=== PATIENT | female | born 1995 | race Caucasian/White ===

== ENCOUNTER → 2016-07-08 | Outpatient (REF) | payer OTHER, SELFPAY | LOC: M LAB REF 16:47 | PROVIDERS: ATTEND Physician Assistant | DX: J02.9 Acute pharyngitis, unspecified (principal) ==

== ENCOUNTER → 2016-10-28 | Outpatient (REF) | payer OTHER | LOC: M LAB REF 09:38 | PROVIDERS: ATTEND Physician Assistant | DX: M54.5 Low back pain (principal) ==

== ENCOUNTER → 2016-11-15 | Outpatient (REF) | payer OTHER | LOC: M LAB REF 13:12 | PROVIDERS: ATTEND Physician Assistant | DX: R30.0 Dysuria (principal) ==

== ENCOUNTER 2017-03-16 09:24 | Inpatient (IN) | payer OTHER ==
[~2017-03-16] VITALS: Ht 154.9 cm; Wt 96.9 kg
[2017-03-16 10:02] VITALS: BP 116/57
[2017-03-16] MEDS ORDERED: FLINCHW9 PO (10:06)
[2017-03-16] MEDS ORDERED: BETAMETHASONE SOLUSPAN 6MG/ML INJ 5ML (J0702) IM ONE (10:45)
[2017-03-16 10:57] VITALS: BP 126/67
--- NOTE | 2017-03-16 13:31 | IPNPDOC ---
Text Note Date of Service The patient was seen on 03/16/17. NOTE Subjective: Patient is a 22 year-old female who is a at 34.1 weeks gestation with an MONICA of 04/26/17. She initiated care with Lamont Gaitan CNM in her 1st trimester and transferred to [facility] in [place]. She presents to L&D for her 2nd dose of betamethasone. She was suppose to go to [place] today for her 2nd dose today but did not want to make the drive due to the weather. She was seen in [place] with contractions and given Magnesium and terbutaline. Her cervix was 2/50/-[address] Castañeda, who discharged her from the hospital yesterday. She arrived for her injection and reports having contractions that are occasionally uncomfortable. She denies vaginal bleeding or leaking of fluid. Reports active movement. Reports contractions are not as bad as they were when she went to the hospital 2 days ago. Obstetrical history: 2010 induced AB, March 2016-6 weeks SAB; Current : Positive AFP tetra-seen at the [facility] with no abnormalities noted on ultrasound-declined amniocentesis. Medical History: anxiety, depression, obesity Surgical History: none Family history: heart disease, bone cancer, lung cancer Social history: single, with FOB-who is supportive, works at [employer]. Denies being a smoker or a history of smoking, alcohol use or abuse, or drug abuse or use. Denies physical, sexual, or emotional abuse. Objective: VS: see below. FHR 115, moderate variability, positive accelerations , no decelerations. Contractions every 2.5 to 7 minutes. SVE: 3/100/0, no show. Abdomen: gravid, palpates soft. Respirations: regular, no use of accessory muscles. Bilateral lower extremities: no edema present. GBS obtained. Assessment: IUP at 34.1 weeks gestation, Category I FHR tracing, rule out labor Plan: Continue to monitor patient. Will assess for cervical change tonight. Patient to receive her 2nd dose of beta today at 1100. GBS obtained. Regular diet. OOB ad breana. Reviewed plan of care with patient and significant other. Reviewed potential to stay and be admitted if she has more cervical change. Reviewed with patient that baby would have to be admitted to NICU if she is in labor. All questions and concerns addressed. VS,Fishbone, I+O VS, Fishbone, I+O Vital Signs Date Time Temp Pulse Resp B/P (MAP) Pulse Ox O2 Delivery O2 Flow Rate FiO2 03/16/17 10:57 94 16 126/67 (86) 03/16/17 10:02 97.7 EH COOPER CNM Mar 16, 2017 13:31
[2017-03-16 14:30] VITALS: BP 116/57
[2017-03-16] MEDS ORDERED: LACTATED RINGER'S 1000 ML IV STA (15:30)
[2017-03-16 16:44] LABS: MEAN CORPUSCULAR HEMOGLOBIN 28.9 pg (27.0-33.0); MEAN CORPUSCULAR HGB CONC 33.1 g/dl (32.0-36.5); MEAN CORPUSCULAR VOLUME 87.2 fl (80.0-96.0); PLATELET COUNT, AUTOMATED 141 10^3/uL (150-450); RED CELL DISTRIBUTION WIDTH 13.4 % (11.5-14.5); WHITE BLOOD COUNT 4.9 10^3/uL (4.0-10.0)
[2017-03-16 16:55] VITALS: BP 102/52
--- NOTE | 2017-03-16 17:15 | IPNPDOC ---
Text Note Date of Service The patient was seen on 03/16/17. NOTE Subjective: Patient reports she has felt 1 contraction in the last 20 minutes. States the intensity and frequency has decreased. She is on her side watching football with her family. Objective: VS: stable. FHR: 120, moderate variability, positive accelerations, no decelerations. Contractions: occasional. 1 hour ago a 4 minute deceleration was noted that decreased into the 100's with great recovery. Assessment: IUP at 34.1 weeks gestation, labor Plan: After reviewing case with Dr. Harper the decision was made to start an IV , give IV fluids, start prophylactic GBS antibiotics, and obtain a CBC. Will continue to monitor. Reviewed plan with patient and . EH COOPER CNM Mar 16, 2017 17:15
--- NOTE | 2017-03-16 23:55 | IPNPDOC ---
Text Note Date of Service The patient was seen on 03/16/17. NOTE Subjective: Patient reports she had some leaking of fluid when she got up to go to the bathroom. Denies leaking fluid while in bed. Reports contractions are very infrequent. Denies any increase in pain or pressure. Objective: FHR: 120, moderate variability, positive accelerations, no decelerations. Contractions: occasionally. Sterile speculum exam: scant amount of clear fluid in the vagina, positive nitrazine, negative fern. SVE: 3/100/-1, no show. No cervical change. Assessment: IUP at 34.1 weeks gestation, labor, Category I FHR tracing Plan: Will continue to monitor for SROM. Reviewed with patient that we will continue to monitor and continue with prophylactic GBS antibiotics. Patient encouraged to let nurse know if she has any increased pressure, leaking of fluid , or increased contractions. VS,Fishbone, I+O VS, Fishbone, I+O Laboratory Tests 03/16/17 16:33 Red Blood Count 4.78, Mean Corpuscular Volume 87.2, Mean Corpuscular Hemoglobin 28.9, Mean Corpuscular Hemoglobin Concent 33.1, Red Cell Distribution Width 13.4 EH COOPER CNM Mar 16, 2017 23:55
[2017-03-17] VITALS (27 sets, daily range): BP systolic 93–150; BP diastolic 52–82
[2017-03-17] MEDS: CEFAZOLIN SOD 1 GM in APPROPRIATE DILUENT 1 EA IV SCH ×3 (01:13→16:54)
[2017-03-17] MEDS: LR 1,000 ML IV SCH ×2 (01:14→16:03)
[2017-03-17] MEDS ORDERED: OXYTOCIN DRIP 30 UNITS in APPROPRIATE DILUENT 1 EA IV SCH ×3 (07:30→19:16)
--- NOTE | 2017-03-17 07:47 | IPNPDOC ---
Text Note Date of Service The patient was seen on 03/17/17. NOTE Subjective: Patient reports she hasn't had any leaking of fluid but feels moist. Reports occasional contractions but no increase in intensity or frequency. Denies increase in vaginal pressure. Objective: Repeat sterile speculum exam performed. +nitrazine, scant pooling of fluid noted, + ferning. SVE: 3-4/100/-1. FHR: Category I tracing. Contractions: occasionally. Assessment: IUP at 34.2 weeks gestation, labor, PPROM, unknown GBS status, Category I FHR tracing, beta complete. Plan: Reviewed findings with patient and significant other. Dr. Harper consulted on findings. Patient admitted to L&D. Reviewed potential complications associated with delivery of a and admission into NICU. Neonatology to be consulted and present for delivery. Plan reviewed with patient, myself, significant other, and Dr. Harper. If patient does not spontaneously go into labor we will augment her labor with Pitocin. Patient and significant other agree with plan of care. VS,Realbone, I+O VS, Fishbone, I+O Laboratory Tests 03/16/17 16:33 Red Blood Count 4.78, Mean Corpuscular Volume 87.2, Mean Corpuscular Hemoglobin 28.9, Mean Corpuscular Hemoglobin Concent 33.1, Red Cell Distribution Width 13.4 Vital Signs Date Time Temp Pulse Resp B/P (MAP) Pulse Ox O2 Delivery O2 Flow Rate FiO2 03/17/17 01:13 81 105/52 (69) 03/16/17 16:55 97.6 16 EH COOPER CNM Mar 17, 2017 07:47
[2017-03-17 08:56] LABS: MEAN CORPUSCULAR HEMOGLOBIN 28.7 pg (27.0-33.0); MEAN CORPUSCULAR HGB CONC 32.8 g/dl (32.0-36.5); MEAN CORPUSCULAR VOLUME 87.3 fl (80.0-96.0); PLATELET COUNT, AUTOMATED 193 10^3/uL (150-450); RED CELL DISTRIBUTION WIDTH 13.6 % (11.5-14.5); WHITE BLOOD COUNT 7.6 10^3/uL (4.0-10.0)
[2017-03-17 12:04] LABS: HBSAG L&D NEGATIVE (NEGATIVE)
[2017-03-17] MEDS ORDERED: FENTANYL 2MCG/ML ROPIVACAINE 0.2% IN 0.9% NACL 200ML IVBAG As Ordered ONE (13:02)
[2017-03-17] MEDS ORDERED: OXYTOCIN 30 UNITS IN 0.9% NaCl 500ML IV BAG (J2590) As Ordered ONE (14:02)
[2017-03-17] MEDS ORDERED: ONDANSETRON 4MG/2ML VIAL (J2405) IV PRN (14:30)
[2017-03-17] MEDS ORDERED: EPIDURAL/PCA KEYS XX PRN (14:30)
[2017-03-17] MEDS ORDERED: REFRIGERATOR IV KEYS XX PRN (14:30)
[2017-03-17] MEDS ORDERED: EPIDURAL COMMENT XX SCH (14:30)
[2017-03-17] MEDS ORDERED: diphenhydrAMINE INJ 50MG/ML VIAL (J1200) IV PRN (14:30)
[2017-03-17] MEDS ORDERED: ePHEDrine SULFATE 25 MG/5 ML(5MG/ML) SYRINGE IV PRN (14:30)
[2017-03-17] MEDS ORDERED: FENTANYL/ROPIVACAINE/NACL BAG 200 ML EPIDURAL SCH (14:30)
[2017-03-17] MEDS ORDERED: NALOXONE INJ 0.4 MG/1 ML VIAL (J2310) IV PRN (14:30)
[2017-03-17] MEDS ORDERED: LACTATED RINGER'S 1000 ML IV PRN (14:30)
[2017-03-17 19:09] LABS: CORD GAS ABE V 0.5; CORD GAS HCO3 V 25.2 MEQ/L; CORD GAS O2 SAT V 67.9 %; CORD GAS PH V 7.407 UNITS; CORD GAS SBC V 24.1 MEQ/L; CORD GAS TCO2 V 26.5 MEQ/L
[2017-03-17 19:10] LABS: CORD GAS ABE A -1.1; CORD GAS HCO3 A 27.5 MEQ/L; CORD GAS O2 SAT A 57.1 %; CORD GAS PH A 7.272 UNITS; CORD GAS PO2 A 24.1 mmHg; CORD GAS SBC A 22.4 MEQ/L; CORD GAS TCO2 A 29.4 MEQ/L
[2017-03-17] MEDS ORDERED: IBUPROFEN 800 MG TAB PO PRN (19:30)
[2017-03-17] MEDS ORDERED: DOCUSATE SODIUM 100 MG CAP PO PRN (19:30)
[2017-03-17] MEDS ORDERED: RHOGAM 300 MCG (1500 IU) INJ (J2790) IM SCH (19:30)
[2017-03-17] MEDS ORDERED: METHYLERGONOVINE MALEATE 0.2 MG TAB PO PRN (19:30)
[2017-03-17] MEDS ORDERED: DIBUCAINE 1% OINTMENT 30GM TOP PRN (19:30)
[2017-03-17] MEDS ORDERED: MEASLES,MUMPS,RUBELLA VACCINE INJ (MMR-II) (90707) SC SCH (19:30)
[2017-03-17] MEDS ORDERED: ACETAMINOPHEN 500 MG TAB PO PRN (19:30)
--- NOTE | 2017-03-17 19:40 | DN ---
DATE OF DELIVERY: 03/17/2017 Vidhi is a 22-year-old female, 3, para 0 who presented to labor and delivery at 34-2/7 weeks gestation with a history of labor. She was given one dose of steroid to complete her dose of steroids that was started at [place]. She progressed in labor with a spontaneous rupture of membranes and in active labor. She then became fully dilated and delivered a live female infant in right occiput anterior position over an intact perineum. 9 and 9, weight 4 pounds 14 ounces. Placenta delivered spontaneously intact. Three-vessel cord. Perineum, vagina, cervix inspected. No laceration noted. Estimated blood loss 300 mL. Both mother and baby in stable condition. Baby cared for by out roustabout hand, Dr. García.
[2017-03-18 06:00] VITALS: BP 114/69
[2017-03-18] MEDS ORDERED: ADACEL/BOOSTRIX VACCINE (DIPHTH/PERTUSS/ACELL/TETANUS)0.5ML SYR (90715) IM ONE (09:00)
[2017-03-18] MEDS: PRENATAL VITAMINS CHEWABLE TABLET PO SCH (09:28)
[2017-03-18] MEDS: valACYclovir HCL 500 MG TAB PO SCH ×2 (12:56→20:06)
[2017-03-18 18:11] VITALS: BP 116/61
[2017-03-19] MEDS ORDERED: VALT1TAB PO (09:06)
[2017-03-19] MEDS: valACYclovir HCL 500 MG TAB PO SCH (09:53)
[2017-03-19] MEDS: PRENATAL VITAMINS CHEWABLE TABLET PO SCH (09:53)
[2017-03-19] MEDS ORDERED: ADVI200C5 PO (12:36)
[2017-03-19] MEDS ORDERED: ACET50TA PO (12:38)
== END 2017-03-19 12:45 | disposition home or self-care (01) | DRG 560 ==
LOC: M LDO 09:24 → M LDI 03-17 07:51 → M OBS 03-17 20:45
PROVIDERS: ADMIT Obstetrics & Gynecology; ATTEND Obstetrics & Gynecology
PROC: 10E0XZZ Delivery of Products of Conception, External Approach (ICD-10-PCS; principal; 2017-03-17)
DX: O60.14X0 Preterm labor third trimester with preterm delivery third trimester, not applicable or unspecified (principal); Z3A.34 34 weeks gestation of pregnancy; O99.214 Obesity complicating childbirth; E66.9 Obesity, unspecified; Z37.0 Single live birth; Z68.41 Body mass index [BMI] 40.0-44.9, adult

== ENCOUNTER → 2017-05-01 | Outpatient (REF) | payer OTHER ==
[2017-05-01 18:07] LABS: CHLAMYDIA DNA AMPLIFICATION NEGATIVE (NEGATIVE); GC DNA AMPLIFICATION NEGATIVE (NEGATIVE)
[2017-05-07 14:13] LABS: HPV HYBRID CAPTURE II Positive (Negative)
== END ==
LOC: M SFHCCLAY 16:26
DX: Z01.419 Encounter for gynecological examination (general) (routine) without abnormal findings (principal)

== ENCOUNTER → 2018-02-11 | Outpatient (REF) | payer OTHER | LOC: M SFHCCLAY 02-12 11:39 | DX: N89.8 Other specified noninflammatory disorders of vagina (principal) | CPT/HCPCS: 87186 ==

== ENCOUNTER 2018-11-23 21:49 | Emergency (ER) | payer OTHER ==
[~2018-11-23] VITALS: Ht 157.5 cm; Wt 95.5 kg
[~2018-11-23 21:49] MED LIST: ADVI200C5 PO; FLINCHW9 PO; MAPA500T2 PO; VALT1TAB PO
[2018-11-24 00:16] VITALS: BP 118/55
--- NOTE | 2018-11-24 07:40 | REP ---
Left femur four views AP and lateral projections: There is no fracture or dislocation. There are postsurgical changes of anterior cruciate graft at the knee. There is an Endo button lateral to the lateral femoral condyle as a postsurgical change. Impression: No fracture or dislocation. The Electronically Signed by Ricky Alfonso MD 11/24/2018 07:31 A
--- NOTE | 2018-11-24 07:42 | REP ---
Extremities right foot four views: There is question of a nondisplaced fracture at the base of the fourth digit metatarsal. This should be correlated with clinical point tenderness. There is soft tissue edema over the dorsum. The Mineralization joint spaces are otherwise unremarkable. There are no calcifications or foreign bodies. Impression: Questionable fracture base of the fourth digit metatarsal. Correlate with clinical point tenderness. Electronically Signed by Ricky Alfonso MD 11/24/2018 07:33 A
--- NOTE | 2018-11-24 07:48 | REP ---
Left knee five views: There is no fracture or dislocation. There is no hemarthrosis. The There are postsurgical changes of the anterior cruciate graft. Mineralization and joint spaces are normal. There is a negative lateral to the lateral femoral condyle to postsurgical change. Impression: Postsurgical changes. No fracture, dislocation, or hemarthrosis. Electronically Signed by Ricky Alfonso MD 11/24/2018 07:39 A
== END 2018-11-24 00:23 | disposition home or self-care (01) ==
LOC: M ED 21:49
DX: S92.344A Nondisplaced fracture of fourth metatarsal bone, right foot, initial encounter for closed fracture (principal); W55.12XA Struck by horse, initial encounter; Y92.830 Public park as the place of occurrence of the external cause; Z88.0 Allergy status to penicillin

== ENCOUNTER 2018-11-28 18:43 | Emergency (ER) | payer OTHER ==
[~2018-11-28] VITALS: Ht 154.9 cm; Wt 103.6 kg
[2018-11-28] MEDS ORDERED: ACETAMINOPHEN TAB 650MG DOSE (2X325MG) PO ONE (20:00)
[2018-11-28] MEDS ORDERED: IBUPROFEN 800 MG TAB PO ONE (20:15)
--- NOTE | 2018-11-28 21:13 | REPVR ---
EXAM: US Duplex Left Lower Extremity Veins, Limited EXAM DATE/TIME: 11/28/2018 8:11 PM CLINICAL HISTORY: 23 years old, female; Pain; Leg, upper and leg, lower; Left; Patient HX: Horse fell on patients leg two days ago; Additional info: Left leg calf tender TECHNIQUE: Imaging protocol: Real-time Duplex ultrasound of the Left Lower Extremity with 2-D gabriel scale, color Doppler flow and spectral waveform analysis with image documentation. Limited exam focused on the left lower extremity veins. COMPARISON: No relevant prior studies available. FINDINGS: Left deep veins: Unremarkable. The common femoral, femoral, proximal profunda femoral and popliteal veins are patent without thrombus. Normal Doppler waveforms. Normal compressibility and/or augmentation response. Left superficial veins: Unremarkable. Saphenofemoral junction is patent without thrombus. Soft tissues: A complex fluid collection is noted in the anterior left thigh measuring 3.6 x 10.2 x 2.7 cm which may reflect residua of hematoma. IMPRESSION: 1. Negative left lower extremity venous duplex exam without evidence of deep venous thrombosis. 2. Complex fluid collection in the anterior left thigh measuring 3.6 x 10.2 x 2.7 cm which may reflect residua of hematoma. Electronically signed by: Tom Uriarte On 11/28/2018 21:12:48 PM
[2018-11-28] MEDS ORDERED: traMADol 50 MG TAB PO ONE (21:45)
[2018-11-28] MEDS ORDERED: traMADol 50 MG TAB (BULK 4 TAB ED) PO ONE (23:15)
[2018-11-28 23:21] VITALS: BP 103/64
[2018-11-28] MEDS ORDERED: TRAM50TA2 PO (23:35)
--- NOTE | 2018-11-29 08:28 | REP ---
Clinical: Trauma. Technique: AP and lateral views of the left tibia / fibula. Findings: Evidence for prior ACL repair. No acute fracture dislocation. No subcutaneous emphysema or foreign body. Impression: No acute fracture or dislocation appreciated. Electronically Signed by Jan Bernard MD 11/29/2018 08:21 A
== END 2018-11-28 23:44 | disposition home or self-care (01) ==
LOC: M ED 18:43
DX: S80.12XD Contusion of left lower leg, subsequent encounter (principal); S70.12XD Contusion of left thigh, subsequent encounter; W55.12XD Struck by horse, subsequent encounter; Y92.099 Unspecified place in other non-institutional residence as the place of occurrence of the external cause; Y93.9 Activity, unspecified; Y99.9 Unspecified external cause status; Z88.0 Allergy status to penicillin

== ENCOUNTER → 2018-12-08 | Outpatient (REF) | payer OTHER ==
[~2018-12-08] MED LIST changes: +TRAM50TA2 PO
== END ==
LOC: M SFHCCLAY 13:54
PROVIDERS: ATTEND Family Medicine
DX: Z68.41 Body mass index [BMI] 40.0-44.9, adult (principal)

== ENCOUNTER → 2018-12-21 | Outpatient (CLI) | payer OTHER ==
--- NOTE | 2018-12-22 18:19 | REP ---
Clinical: Traumatic hematoma and swelling. Technique: Real time gabriel scale ultrasound examination using linear high frequency and curved array transducers. Findings: Directed ultrasound examination along the left anterior thigh demonstrates complex fluid collection extending to the knee and measuring roughly 12.6 x 8.5 x 8.3 cm. Collection appears increased from prior examination. Impression: Large complex fluid collection increased from prior examination consistent with hematoma. Correlation and follow up recommended. Electronically Signed by Jan Bernard MD 12/22/2018 06:11 P
== END ==
LOC: M RAD 15:52
PROVIDERS: ATTEND Family Medicine
DX: S70.12XD Contusion of left thigh, subsequent encounter (principal)

== ENCOUNTER → 2019-01-14 | Outpatient (REF) | payer OTHER ==
[2019-01-14 19:52] LABS: CHLAMYDIA DNA AMPLIFICATION POSITIVE (NEGATIVE); GC DNA AMPLIFICATION NEGATIVE (NEGATIVE)
[2019-01-15 09:21] LABS: HEPATITIS A ANTIBODY IGM NEGATIVE (NEGATIVE); HEPATITIS B CORE ANTIBODY IGM NEGATIVE (NEGATIVE); HEPATITIS B SURFACE ANTIGEN NEGATIVE (NEGATIVE); HEPATITIS C VIRUS ABY INDEX 0.1 INDEX (<0.8); HIV 1&2 SCREEN CENTAUR NEGATIVE (NEGATIVE)
== END ==
LOC: M SFHCCLAY 10:36
PROVIDERS: ATTEND Family Medicine
DX: Z11.3 Encounter for screening for infections with a predominantly sexual mode of transmission (principal)

== ENCOUNTER → 2019-01-18 | Outpatient (CLI) | payer OTHER ==
[~2019-01-18] MED LIST changes: +ACET-897 PO; +ACET12SU PR; +BACT800T5 PO; +ISOVUE-370 76% 100ML VIAL (Q9967) As Ordered ONE
--- NOTE | 2019-01-29 10:56 | REP ---
Note: Examination was initially evaluated and dictated on 01/19/2019 at 07:03 a.m. Clinical: Enlarging traumatic fluid collection. Evaluate for possible arteriovenous fistula or vascular component. Technique: Axial contrast enhanced images using arterial angiographic technique including coronal and sagittal re-formations as well as multiplanar MIP imaging and 3-D volume rendered images of the lower extremity from the pelvis through the foot. 100 ml Isovue 370 intravenous contrast material administered without complication. Correlation: Lower extremity ultrasound dated 11/28/2018, 12/21/2018. Findings: There is a large complex fluid collection along the anterior thigh measuring approximately 14 cm in craniocaudal length and 10.5 x 6.5 cm maximal diameter containing a few small pockets of presumed trapped subcutaneous fat. Mild peripheral subcutaneous stranding is also appreciated and the finding is consistent with previously diagnosed post traumatic hematoma. No obvious vascular blush or definite feeding vessels are appreciated. The underlying musculature appears relatively intact and within normal limits. The arterial vasculature from the distal abdominal aorta through the left lower extremity to the ankle and foot appear relatively normal. The osseous structures are intact there is evidence for prior ACL repair. Impression: Large minimally dense fluid collection in the subcutaneous compartment of the anterior thigh with small amounts of suspected trapped fat. Given the history of trauma, this likely represents large hematoma. While no definite associated vasculature is appreciated small feeding vessels cannot definitively be excluded. Correlation and follow up ultrasound may be warranted. Electronically Signed by Jan Bernard MD 01/29/2019 10:48 A
== END ==
LOC: M RAD 12:03
PROVIDERS: ATTEND Surgery
DX: I77.0 Arteriovenous fistula, acquired (principal); W55.89XA Other contact with other mammals, initial encounter
CPT/HCPCS: 73706; Q9967

== ENCOUNTER 2019-02-05 16:28 | Emergency (ER) | payer OTHER ==
[~2019-02-05] VITALS: Ht 154.9 cm; Wt 104.5 kg
[~2019-02-05 16:28] MED LIST changes: -ACET-897 PO; -ACET12SU PR; -BACT800T5 PO; -ISOVUE-370 76% 100ML VIAL (Q9967) As Ordered ONE
[2019-02-05] MEDS ORDERED: ISOVUE-370 76% 100ML VIAL (Q9967) As Ordered ONE (19:48)
--- NOTE | 2019-02-05 20:58 | REPVR ---
PROCEDURE INFORMATION: Exam: CT Left Lower Extremity Without and With Contrast; Thigh Exam date and time: 02/05/2019 7:57 PM Clinical history: 24 years old, female; Injury or trauma; Injury history: Kicked by horse end october; Late effect from previous injury; Blunt trauma; Thigh or upper leg; Left; Additional info: Hematoma inc size/pain with and without contrast please TECHNIQUE: Imaging protocol: CT of the Left lower extremity without and with intravenous contrast was performed. Exam focused on the thigh. Radiation optimization: All CT scans at this facility use at least one of these dose optimization techniques: automated exposure control; mA and/or kV adjustment per patient size (includes targeted exams where dose is matched to clinical indication); or iterative reconstruction. Contrast material: ISOVUE 370; Contrast volume: 100 ml; Contrast route: IV; COMPARISON: CR Femur 11/23/2018 10:44 PM FINDINGS: Bones/joints: Old screw tracts through the proximal tibia, and distal femur from the medial side, as was through the patella. Trace suprapatellar joint effusion. Mild degenerative joint disease. Soft tissues: Large hematoma within the subcutaneous soft tissues in the anterior thigh measuring 11 x 8 x 16 cm. Superficial to the muscular compartment with associated mild mass effect on the muscle but location mitigates against a compartment syndrome. Skin thickening and swelling along the medial and lower thigh. The hematoma within the soft tissues contains foci of fat. Vasculature: Appears largely liquefied and may be amenable to percutaneous drainage followed by tight compression of the thigh. Small amount of contrast extravasation arising from a superficial vein extending into the hematoma on series 302 image 80 and series 303 image 32. IMPRESSION: 1. No acute osseous abnormality. 2. Large hematoma within the subcutaneous soft tissues in the anterior thigh measuring 11 x 8 x 16 cm. Superficial to the muscular compartment with associated mild mass effect on the muscle but location mitigates against a compartment syndrome. 3. The hematoma within the soft tissues contains foci of fat. Appears largely liquefied and may be amenable to percutaneous drainage followed by tight compression of the thigh. 4. Small amount of contrast extravasation arising from a superficial vein extending into the hematoma on series 302 image 80 and series 303 image 32. Electronically signed by: Trey Leroy On 02/05/2019 20:58:14 PM
[2019-02-05 21:33] VITALS: BP 124/87
--- NOTE | 2019-02-09 12:49 | ED PDOC ---
Post-Departure Follow-Up tayla jerez and mati faxed formal report of ct femur forfu Rafal Awad MD Feb 09, 2019 12:49
== END 2019-02-05 21:36 | disposition home or self-care (01) ==
LOC: M ED 16:28
DX: S70.12XA Contusion of left thigh, initial encounter (principal); W22.8XXA Striking against or struck by other objects, initial encounter; Y92.89 Other specified places as the place of occurrence of the external cause; Z88.0 Allergy status to penicillin
CPT/HCPCS: 73701; 99284; Q9967

== ENCOUNTER 2019-03-09 14:48 | Observation (INO) | payer OTHER ==
[~2019-03-09] VITALS: Ht 154.9 cm; Wt 103.3 kg
[2019-03-09] MEDS ORDERED: ACET12SU PR (14:57)
[2019-03-09 16:32] LABS: BASO % 0.3 % (0.0-1.0); EOS # 0.1 10^3/uL (0.0-0.5); EOS % 0.8 % (0.0-3.0); HEMATOCRIT 44.2 % (36.0-47.0); LYMPH # 1.4 10^3/uL (1.5-5.0); LYMPH % 11.8 % (24.0-44.0); MEAN CORPUSCULAR HEMOGLOBIN 27.5 pg (27.0-33.0); MEAN CORPUSCULAR HGB CONC 31.7 g/dl (32.0-36.5); MEAN CORPUSCULAR VOLUME 86.7 fl (80.0-96.0); MONO % 8.4 % (0.0-5.0); NEUTROPHILS # 9.1 10^3/uL (1.5-8.5); NEUTROPHILS % 78.3 % (36.0-66.0); PLATELET COUNT, AUTOMATED 258 10^3/uL (150-450); WHITE BLOOD COUNT 11.7 10^3/uL (4.0-10.0)
[2019-03-09 16:49] LABS: BLOOD UREA NITROGEN 12 MG/DL (7-18); CALCIUM LEVEL 8.6 MG/DL (8.5-10.1); CARBON DIOXIDE LEVEL 27 MEQ/L (21-32); CHLORIDE LEVEL 102 MEQ/L (98-107); CREATININE FOR GFR 0.83 MG/DL (0.55-1.30); GLOMERULAR FILTRATION RATE > 60.0 (>60); GLUCOSE, FASTING 92 MG/DL (70-100); POTASSIUM SERUM 3.8 MEQ/L (3.5-5.1); SODIUM LEVEL 137 MEQ/L (136-145)
--- NOTE | 2019-03-09 17:24 | REPVR ---
PROCEDURE INFORMATION: Exam: US Left Non-Vascular Joint or Other Extremity Structure, Limited Lower Extremity Exam date and time: 03/09/2019 5:15 PM Clinical history: 24 years old, female; Pain; Lower leg; Left; Additional info: Left calf swelling, redness TECHNIQUE: Imaging protocol: Left US Non-Vascular Joint or Other Extremity Structure. Limited exam of the lower extremity. COMPARISON: US PV-Darius 02/05/2019 6:56 PM FINDINGS: Soft tissues: Imaging of the soft tissues of the left calf medially demonstrates the presence of a large complex cystic fluid collection measuring 14.8 x 2.7 x 5.1 cm. IMPRESSION: Imaging of the soft tissues of the left calf medially demonstrates the presence of a large complex cystic fluid collection measuring 14.8 x 2.7 x 5.1 cm. Considering history of recent injury the finding likely represents a hematoma/seroma. Confirmation with image guided percutaneous aspiration could be obtained if clinically desired. Electronically signed by: Marcus Gee On 03/09/2019 17:24:23 PM
[2019-03-09] MEDS ORDERED: MORPHINE 4 MG/ML 1ML VIAL/SYRINGE (J2270) IV ONE (17:30)
[2019-03-09] MEDS ORDERED: NS 1,000 ML IV ONE (17:45)
[2019-03-09] MEDS: KETOROLAC 30 MG/ML VIAL (J1885) IV SCH (18:00)
[2019-03-09] MEDS ORDERED: LIDOCAINE W/EPINEPHRINE 1% 20ML VIAL SC ONE (18:00)
[2019-03-09] MEDS ORDERED: SILVER NITRATE APPLICATOR TOP ONE ×2 (18:15→18:45)
[2019-03-09] MEDS ORDERED: ACET-897 PO (18:16)
[2019-03-09] MEDS ORDERED: LevoFLOXacin IV 750 MG in IV 1 EA IV ONE (18:30)
[2019-03-09] MEDS ORDERED: ULTRACET TAB PO PRN ×2 (18:30)
[2019-03-09] MEDS ORDERED: ONDANSETRON 4MG/2ML VIAL (J2405) IV PRN (18:30)
[2019-03-09] MEDS ORDERED: VANCOMYCIN HCL 1,000 MG, VIAL MATE ADAPTER 1 EACH in D5W 250 ML IV SCH ×2 (18:30→20:00)
[2019-03-09 20:12] VITALS: BP 106/64
--- NOTE | 2019-03-09 20:28 | HPE ---
DATE OF ADMISSION: 03/09/2019 CHIEF COMPLAINT: Left lower leg infection. BRIEF HISTORY OF PRESENT ILLNESS: Patient is a 24-year-old female. About a month ago, she was injured with a horse that stepped on her left leg, both on the upper thigh and lower leg. She had some abrasions on the lower leg. Really did not have much of a hematoma compared to the left upper leg, but reportedly she states that the hematoma/seroma of the left upper leg was relatively large and it was present and treated nonoperatively. Plan was for a followup with possibly vascular to further evaluated, possibly drain it, etc. In any case, patient 48 hours ago started developing some cellulitis of her lower leg and noticed increasing swelling over the last 48 hours, with increasing pain and redness. She presents with an elevated white count of approximately 12,000 and with a low grade fever. She has pain at the site and redness. PAST MEDICAL HISTORY: Significant for: 1. History of morbid obesity. 2. History of knee surgery. MEDICATIONS: None. PHYSICAL EXAMINATION: Reveals a 24-year-old female who looks stated age. HEENT: Unremarkable. NECK: Supple without adenopathy. LUNGS: Clear to auscultation. HEART: Regular. ABDOMEN: Soft, nontender. LEFT LOWER EXTREMITY: Reveals a large seroma of the left upper leg/resolving hematoma, but it is probably a seroma. It does not look infected at this time, does not have any cellulitis around it. However, the left lower leg has impressive cellulitis, with attenuated skin overlying a fluid collection consistent with a probable abscess or, most likely, this was a hematoma that secondarily got infected. IMPRESSION/PLAN: Patient has evidence of an abscess on her left lower leg. Given the size of this is relatively large on the ultrasound, I do feel that we can at least aspirated it, possibly drain some of the fluid out now to get a culture and gram stain, and then see if we can get a drain placed with ultrasound-guided drainage tomorrow. At least we can have that draining and I feel that would be a better option then to open this entire area up, which would be a prolonged healing problem for her and it may take several weeks of dressing changes, or even a wound VAC in place. She would like to have this drained, if possible, and not undergo debridement unless absolutely necessary, and I agree it is reasonable to see how she does overnight with aspiration of this and possible placement of the drainage tube tomorrow. Thus, we will admit her to the hospital intravenous (IV) fluids, IV antibiotics and I have consented her for aspiration and possible incision and drainage (I and D) of this here at the bedside.
[2019-03-09] MEDS: NS 1,000 ML IV SCH (20:32)
--- NOTE | 2019-03-09 20:34 | RO ---
DATE OF PROCEDURE: 03/09/2019 PREOPERATIVE DIAGNOSIS: Left lower leg abscess. POSTOPERATIVE DIAGNOSIS: Left lower leg abscess. OPERATIVE PROCEDURE: Incision and drainage of left lower leg abscess. SURGEON: Wilfrdeo Anton MD ANESTHESIA: Local lidocaine mixed with epinephrine. ESTIMATED BLOOD LOSS: Minimal. DESCRIPTION OF PROCEDURE: The patient was left in her emergency room bed, was prepped and draped in the usual sterile fashion. Local lidocaine with epinephrine was infiltrated overlying the abscess cavity and an #11 angio-cath then was placed into site and this drained a significant amount of purulent fluid, but continued draining. I used the #18 gauge needle as the equivalent of an #11 blade to make a cruciate incision in this area to help drain the extra purulent material. Initially prior to this I had felt that it was most likely a hematoma with some possible mild infection, but this was obvious significant purulent drainage and thus with the emptying of the significant pocket the patient had some relief of discomfort and pressure in this area. There was some mild oozing from a little vein that was in the subcutaneous tissue which was controlled with a silver nitrate stick. A dry sterile dressing was applied and a Kerlix wrap. The patient's leg was elevated and the patient was admitted to the hospital for ongoing care and observation overnight.
--- NOTE | 2019-03-09 21:11 | PHACANCOPD ---
PHARMACY VANCOMYCIN DOSING Pt Demographics Demographics Patient Age:24 , Weight:104.550 , Gender: female Adjusted Body Weight Date: 03/09/19, Adjusted Body Weight: Kg Events Past 24 Hours Events Past 24 Hours: YES: Fever, Elevation in WBC; NO: Dialysis, Diuretic Therapy, Change in CrCl, Pending Diagnostics, Pending Procedures, Other Vancomycin Vancomycin Target Ranges: 10-20 mcg/ml Vancomycin Load Y/N: Yes Load Dose Date Time Vancomycin Load Dose: 2 GRAMS Date: 03/09/19 Time: 2100 Vancomycin Dose Date: 03/09/19. Current Vancomycin Dose: [ 1.5 grams every 12 hours ] Intermittent Dosing?: No Labs Labs Vital Signs Label Value Date Time Patient Temperature 100.4 degrees F 03/09/192011 Temperature Source Oral 03/09/192011 Patient Temperature 97.9 degrees F 03/09/192007 Temperature Source Temporal 03/09/192007 Patient Temperature 99.6 degrees F 03/09/191825 Temperature Source Temporal 03/09/191825 Blood Pressure Assessment 125/66 (85) 03/09/191825 Location Left Arm Source Automatic Cuff (NIBP) Position Supine Blood Pressure Assessment 128/68 (88) 03/09/192007 Location Right Arm Source Automatic Cuff (NIBP) Position Sitting Blood Pressure Assessment 106/64 (78) 03/09/192011 Respiratory Rate 24 bpm 03/09/192011 Respiratory Rate 24 bpm 03/09/192032 Respiratory Rate 20 bpm 03/09/191825 Respiratory Rate 18 bpm 03/09/192007 Item Value Date Time White Blood Count 11.7 10^3/uL H 03/09/19 1612 Creatinine 0.83 MG/DL 03/09/19 1612 Micro Microbiology 03/09/19 Gram Stain, Received Pending 03/09/19 Wound Culture, Received Pending 03/09/19 Blood Culture, Received Pending 03/09/19 Blood Culture, Received Pending Creatinine Clearance Date:03/09/19. Creatinine Clearance: [ 86.2 mL/min ]. Assessment and Plan Maintaining Current Dose?: Yes Reason for dose change: No Dose Change Pharmacist Note Pharmacist Note Date: 03/09/19. Pharmacist note: Patient is a 24 year old female who presented to the emergency department today complaining of a swollen left, lower extremity. She states she was stepped on by a horse and subsequently developed a hematoma. She was placed on antimicrobial therapy consisting of Levaquin and vancomycin. For vancomycin she was initiated with a 2 gram loading dose followed by a maintenance dose of 1.5 grams every 12 hours. A trough was scheduled for 1999 on 03/10/19, prior to the third dose. We will continue to monitor and make adjustments as necessary. [facility] Mar 09, 2019 21:11
[2019-03-09] MEDS: VANCOMYCIN HCL 1,000 MG, VIAL MATE ADAPTER 1 EACH in D5W 250 ML IV SCH ×2 (21:38→23:01)
[2019-03-09 23:06] VITALS: BP 113/72
[2019-03-10 00:35] VITALS: BP 116/71
[2019-03-10] MEDS: KETOROLAC 30 MG/ML VIAL (J1885) IV SCH ×4 (00:49→17:51)
[2019-03-10] MEDS: NS 1,000 ML IV SCH ×2 (03:00→11:00)
[2019-03-10 06:00] VITALS: BP 115/66
[2019-03-10 06:33] LABS: HEMATOCRIT 36.6 % (36.0-47.0); MEAN CORPUSCULAR HEMOGLOBIN 27.7 pg (27.0-33.0); MEAN CORPUSCULAR HGB CONC 31.7 g/dl (32.0-36.5); MEAN CORPUSCULAR VOLUME 87.4 fl (80.0-96.0); PLATELET COUNT, AUTOMATED 210 10^3/uL (150-450); RED BLOOD COUNT 4.19 10^6/uL (4.00-5.40); WHITE BLOOD COUNT 7.1 10^3/uL (4.0-10.0)
[2019-03-10 06:40] LABS: HEMOGLOBIN 11.6 g/dl (12.0-15.5)
[2019-03-10] MEDS: VANCOMYCIN HCL 1,000 MG, VIAL MATE ADAPTER 1 EACH in D5W 250 ML IV SCH ×2 (09:33→21:35)
[2019-03-10 10:00] VITALS: BP 115/72
[2019-03-10] MEDS: VANCOMYCIN HCL 500 MG in D5W MINI-BAG PLUS 100 ML IV SCH ×2 (10:46→23:04)
[2019-03-10] MEDS ORDERED: LIDOCAINE 1% MDV 20ML VIAL As Ordered ONE (12:44)
--- NOTE | 2019-03-10 13:35 | IPN ---
DATE: 03/10/2019 The patient seems to be doing well. She has been afebrile overnight and her white count is back down to normal. Most her cellulitis is much improved with decreasing darkness/redness to it on the left lower leg and what I am seeing is overall some significant improvement of this in its presentation. However, she still has some fluctuant fluid underneath the surface of this skin but much less than it was last night. The area which had some oozing from a superficial vein that was controlled with silver nitrate is not oozing any fluid and is not "open at this time." Otherwise, she seems to be doing well, feeling better, moving her extremities without difficulty, not complaining of any pain or discomfort in the left thigh area where her other seroma/hematoma is. IMPRESSION/PLAN: The patient has evidence of a residual fluid collection in the left lower leg and will get the interventionalist to place an ultrasound-guided drainage tube. Once we have that in place, we can discharge her to home with oral antibiotics and have her followup next week for the drain to be removed. We will see if we can schedule that for her after the drain has been placed this afternoon.
[2019-03-10 14:00] VITALS: BP 116/72
--- NOTE | 2019-03-10 17:24 | REP ---
ULTRASOUND-GUIDED LEFT CALF ABSCESS DRAIN The procedure was performed under the direct supervision of Dr. Sexton. Patient has a history of A large complex cystic fluid collection measuring 14.8 x 2.7 x 5.1 cm in the left calf medially seen on a previous ultrasound dated 03/09/2019. The risks and benefits of the procedure were explained to the patient and informed consent was obtained. The left calf abscess was localized using ultrasound guidance. The skin was prepped and draped in a sterile fashion. 1% lidocaine was used as a local anesthetic. Using ultrasound guidance a 10-[place] Skater APDL catheter was inserted using trocar technique. 70 ml of reddish colored purulent fluid was withdrawn and sent to lab for analysis. The catheter was affixed to the skin and a sterile dressing was applied. The catheter was connected to a gravity drainage bag. The patient tolerated the procedure well and there were no immediate complications. After the appropriate amount of monitored convalescence the patient was discharged from the department. Electronically Signed by KATJA Arciniega 03/10/2019 04:15 P Electronically Signed by Jordin Sexton MD 03/10/2019 05:16 P
[2019-03-10 18:00] VITALS: BP 115/71
[2019-03-10] MEDS ORDERED: LevoFLOXacin IV 750 MG in IV 1 EA IV SCH (18:00)
[2019-03-10 20:00] VITALS: BP 116/71
--- NOTE | 2019-03-10 23:33 | PHACANCOPD ---
PHARMACY VANCOMYCIN DOSING Pt Demographics Demographics Patient Age:24 , Weight:103.300 , Gender: female Adjusted Body Weight Events Past 24 Hours Events Past 24 Hours: NO: Dialysis, Diuretic Therapy, Change in CrCl, Fever, Elevation in WBC, Pending Diagnostics, Pending Procedures, Other Vancomycin Vancomycin indication: LLE CELLULITIS Vancomycin Target Ranges: 10-20 mcg/ml Vancomycin Load Y/N: Yes Load Dose Date Time Vancomycin Load Dose: 2 GRAMS Date: 03/09/19 Time: 2100 Vancomycin Dose Date: 03/10/19. Current Vancomycin Dose: [ FOLLOWING SCHEDULED 1.5GM VANCO DOSE AT 21:00 CHANGE TO VANCO 1GM IV Q6H start 03:00 03/11/19] Intermittent Dosing?: No Labs Labs Laboratory Tests Test 03/10/19 19:47 Vancomycin Level Trough 9.6 UG/ML (10.0-20.0) Laboratory Tests 03/09/19 16:12 03/10/19 05:46 Micro Microbiology 03/10/19 Gram Stain - Final, Resulted 03/10/19 Abscess Culture, Resulted Pending 03/10/19 Anaerobic Culture, Resulted Pending 03/09/19 Gram Stain - Final, Resulted 03/09/19 Wound Culture - Preliminary, Resulted Staphylococcus Aureus 03/09/19 Blood Culture - Preliminary, Resulted No growth after 24 hours . All specim... 03/09/19 Blood Culture - Preliminary, Resulted No growth after 24 hours . All specim... Creatinine Clearance Date:03/10/19. Creatinine Clearance: [ >60 mL/min ]. Pending Labs VANCO TROUGH SCHEDULED PRIOR TO 03/11/19 21:00 DOSE Assessment and Plan Maintaining Current Dose?: No Reason for dose change: Trough too low Pharmacist Note Pharmacist Note Date: 03/10/19. PharmD note: VANCO 1.5GM IV Q12H RESULTED IN A VANCO TROUGH 9.6 mcg/ml: FOLLOWING HER 21:00 1.5GM VANCO DOSE THIS EVENING WE WILL CHANGE HER TO VANCO 1GM IV Q6H STARTING AT 03:00 03/11/19. WE WILL DRAW A VANCO TROUGH TOMORROW EVENING PRIOR TO HER 21:00 DOSE [facility] Mar 10, 2019 23:33
[2019-03-11] MEDS: KETOROLAC 30 MG/ML VIAL (J1885) IV SCH ×2 (00:34→05:26)
[2019-03-11 02:00] VITALS: BP 124/72
[2019-03-11] MEDS: VANCOMYCIN HCL 1,000 MG, VIAL MATE ADAPTER 1 EACH in D5W 250 ML IV SCH ×2 (03:09→09:29)
[2019-03-11 06:00] VITALS: BP 106/67
[2019-03-11 06:36] LABS: HEMOGLOBIN 11.5 g/dl (12.0-15.5); MEAN CORPUSCULAR HEMOGLOBIN 27.1 pg (27.0-33.0); MEAN CORPUSCULAR HGB CONC 31.1 g/dl (32.0-36.5); MEAN CORPUSCULAR VOLUME 87.3 fl (80.0-96.0); PLATELET COUNT, AUTOMATED 228 10^3/uL (150-450); RED BLOOD COUNT 4.24 10^6/uL (4.00-5.40); WHITE BLOOD COUNT 5.4 10^3/uL (4.0-10.0)
[2019-03-11] MEDS ORDERED: BACT800T5 PO (09:30)
[2019-03-11 10:00] VITALS: BP 120/94
== END 2019-03-11 11:05 | disposition home or self-care (01) ==
LOC: M ED 14:48 → M ED INP 14:49 → M MSPAV 20:11
PROVIDERS: ADMIT Surgery; ATTEND Surgery
DX: L02.416 Cutaneous abscess of left lower limb (principal); A49.01 Methicillin susceptible Staphylococcus aureus infection, unspecified site; E66.01 Morbid (severe) obesity due to excess calories
CPT/HCPCS: 10030; 10060; 36415; 76882; 80048; 80202; 83605; 85025; 85027; 85379; 87040; 87070; 87075; 87077; 87088; 87186; 87205; 96361; 96365; 96366; 96375; 96376; 99284; J1885; J1956; J2270; J2405; J3370

== ENCOUNTER 2019-07-19 12:29 | Inpatient (IN) | payer OTHER ==
[~2019-07-19] VITALS: Ht 154.9 cm; Wt 101.2 kg
[~2019-07-19 12:29] MED LIST changes: +ACET-897 PO; +ACET12SU PR; +BACT800T5 PO
[2019-07-19] MEDS ORDERED: ACETAMINOPHEN 325 MG TAB PO ONE (13:00)
[2019-07-19 13:36] LABS: BASO % 0.1 % (0.0-1.0); HEMATOCRIT 41.2 % (36.0-47.0); HEMOGLOBIN 13.7 g/dl (12.0-15.5); LYMPH # 0.8 10^3/uL (1.5-5.0); LYMPH % 7.6 % (24.0-44.0); MEAN CORPUSCULAR HEMOGLOBIN 28.1 pg (27.0-33.0); MEAN CORPUSCULAR HGB CONC 33.3 g/dl (32.0-36.5); MEAN CORPUSCULAR VOLUME 84.6 fl (80.0-96.0); MONO # 0.7 10^3/uL (0.0-0.8); MONO % 6.7 % (0.0-5.0); NEUTROPHILS # 9.2 10^3/uL (1.5-8.5); NEUTROPHILS % 85.1 % (36.0-66.0); PLATELET COUNT, AUTOMATED 202 10^3/uL (150-450); RED BLOOD COUNT 4.87 10^6/uL (4.00-5.40); WHITE BLOOD COUNT 10.9 10^3/uL (4.0-10.0)
[2019-07-19 14:06] LABS: ALBUMIN 3.5 GM/DL (3.2-5.2); ALT/SGPT 36 U/L (12-78); BILIRUBIN,DIRECT 0.3 MG/DL (0.0-0.2); BLOOD UREA NITROGEN 12 MG/DL (7-18); CARBON DIOXIDE LEVEL 28 MEQ/L (21-32); CHLORIDE LEVEL 100 MEQ/L (98-107); CREATININE FOR GFR 1.38 MG/DL (0.55-1.30); GLOMERULAR FILTRATION RATE 50.4 (>60); GLUCOSE, FASTING 98 MG/DL (70-100); POTASSIUM SERUM 3.7 MEQ/L (3.5-5.1); SODIUM LEVEL 134 MEQ/L (136-145); TOTAL PROTEIN 7.2 GM/DL (6.4-8.2)
[2019-07-19 14:16] LABS: HCG, SERUM QUALITATIVE NEGATIVE (NEGATIVE)
[2019-07-19] MEDS ORDERED: NS 1,000 ML IV ONE (14:45)
[2019-07-19 15:10] LABS: ERYTHROCYTE SEDIMENTATION RATE 54 mm/hr (0-20)
[2019-07-19] MEDS ORDERED: VANCOMYCIN HCL 2,000 MG in D5W 500 ML IV ONE (15:45)
[2019-07-19] MEDS ORDERED: VANCOMYCIN HCL 1,000 MG, VIAL MATE ADAPTER 1 EACH in D5W 250 ML IV ONE ×2 (16:00→17:00)
[2019-07-19] MEDS ORDERED: VANCOMYCIN HCL 1,000 MG, VIAL MATE ADAPTER 1 EACH in D5W 250 ML IV SCH (16:30)
[2019-07-19] MEDS ORDERED: MOM 30ML SUSPENSION UDC PO PRN (16:30)
[2019-07-19] MEDS ORDERED: MAALOX 30 ML SUSP *UDC PO PRN (16:30)
--- NOTE | 2019-07-19 17:24 | REPVR ---
PROCEDURE INFORMATION: Exam: US Duplex Left Lower Extremity Veins, Limited Exam date and time: 07/19/2019 5:14 PM Age: 24 years old Clinical indication: Other: Cellulitis lt eisenberg; Additional info: Le erythema TECHNIQUE: Imaging protocol: Real-time Duplex ultrasound of the Left Lower Extremity with 2-D gabriel scale, color Doppler flow and spectral waveform analysis with image documentation. Limited exam focused on the left lower extremity veins. COMPARISON: US Duplex, Ext,LOWER veins,unilat LEFT 11/28/2018 8:05 PM FINDINGS: Left deep veins: Unremarkable. The common femoral, femoral, proximal profunda femoral and popliteal veins are patent without thrombus. Normal Doppler waveforms. Normal compressibility and/or augmentation response. Left superficial veins: Not fully evaluated. Soft tissues: Unremarkable. IMPRESSION: No evidence of deep vein thrombosis. Electronically signed by: Liv Soler On 07/19/2019 17:24:11 PM
--- NOTE | 2019-07-19 17:32 | HPEPDOC ---
[facility] Medical History & Physical Date of Admission Jul 19, 2019 Date of Service: Jul 19, 2019 Primary Care Physician: MORENO OVIEDO DO Attending Physician: RAN MUÑOZ DO History and Physical CHIEF COMPLAINT: Left lower extremity swelling and erythema 24 hours. HISTORY OF PRESENT ILLNESS: Patient is a 24-year-old female who presents to the emergency department today with a chief complaint of left lower extremity swelling and erythema which began approximately 24 hours prior to presentation. She also endorses 24-hour history of subjective fevers, chills, nausea and vomiting x4 with reduced oral intake. In the emergency department, patient was found to be febrile with a temperature of 102, pulse of 132, respiratory rate of 20, blood pressure 116/58 (77). She maintained oxygen saturation of 97% on room air. CBC demonstrated a mild leukocytosis of 10.9. CMP significant for an NORM with a BUN of 12 and a cr eatinine of 1.38. Lactic acid was negative. CRP was elevated at 18. She was treated for her fever with Tylenol, given a dose of IV vancomycin and a 1 L fluid bolus. Given her need for IV antibiotics, patient will be admitted to Med/Surg for further management and evaluation. Of historical note, patient was admitted to the hospital under the care of the surgical service in 03/16 for a similar presentation. Patient required drain placement. Wound culture found MSSA. She was treated with IV vancomycin and discharged home on Bactrim with uncomplicated follow-up. PAST MEDICAL HISTORY: L LE MSSA cellulitis, 03/16 PAST SURGICAL HISTORY: Left knee surgery, 03/11 SOCIAL HISTORY: Marital status: Single Home: Lives at home with dad, boyfriend and daughter Children: One daughter Employment: Works as a cashier credit Tobacco use: Lifetime nonsmoker ETOH: Patient denies any alcohol use Illicit drug use: Denies any history of illicit drug use Other relevant social factors: No recent travel or known sick contacts FAMILY HISTORY: Father: Alive, 45 years, no known medical problems Mother: , 41 years, unspecified heart disease Siblings: Alive, 11 years old Children: Alive, one daughter, healthy Hereditary Diseases: No known history of breast, ovarian or colorectal cancer ALLERGIES: Amoxicillin, rash REVIEW OF SYSTEMS: CONSTITUTIONAL: Patient reports 24-hour history of subjective fever, chills. She also has had accompanying decreased appetite and poor oral intake. HEENT: Denies headaches CARDIOVASCULAR: Denies any chest pain RESPIRATORY: No shortness of breath or cough GASTROINTESTINAL: Reports nausea with associated vomiting 4, resolved abdominal pain/discomfort GENITOURINARY: Denies any urinary symptoms SKIN: Reports left lower extremity MUSCULOSKELETAL: No joint pain or difficulty ambulating NEUROLOGICAL: Denies any numbness or tingling PSYCHIATRIC: No history of anxiety/depression HOME MEDICATIONS: None PHYSICAL EXAMINATION: VITAL SIGNS: Temperature 99.3, pulse 132, respiratory rate 20, blood pressure 116/58 (77), pulse oximetry 97% on room air. GENERAL APPEARANCE: Patient was interviewed and examined in immediate care. She was awake, alert and oriented. She did not appear any acute distress. HEENT: Normocephalic, atraumatic, EOMI, CARDIOVASCULAR: Rate and rhythm, normal S1 and S2 that any appreciable murmurs. LUNGS: Clear to auscultation bilaterally without any wheezes rales or rhonchi. Symmetric chest. rise and fall. Good air movement. ABDOMEN: Obese, soft, nontender, nondistended, no appreciable organomegaly. MUSCULOSKELETAL: Moves all extremities equally. EXTREMITIES: Large area of well demarcated erythema on the anterior aspect of patient's left lower extremity extending from ankle to 3 cm below the knee. Outlined in ED. No underlying fluctuance. NEUROLOGICAL: No focal neurologic deficits, no gait abnormalities, no noted dysarthria or aphasia. PSYCHIATRIC: Mood and affect are appropriate considering current medical condition. LABORATORY DATA: See below. IMAGING: Lower Extremity U/S (07/19/19): Pending MICROBIOLOGY: Please see below. ASSESSMENT: Patient is a 24 year old female, without any significantly past medical history, who presents to the ED complaining of 24 hour history of increasing L LE erythema in the setting of nausea, vomiting and subjective fever. Pt will be admitted for continuing IV Abx therapy. PLAN: #L LE Moderate Cellulitis * Plan to treat with IV Vancomycin. * Continue to monitor erythema reduction. * LE U/S to r/o DVT * BC x2 pending #NORM * BUN/Cr of 12/1.38, previous Cr of 0.83 in 03/16 * Suspect 2/2 to poor oral intake over previous 24 hours * IVF at 140 ml/hr * Continue to monitor with BMP. #Sepsis Criteria * Patient is tachycardic with a pulse of 132, Tmax of 102.0 with suspected source of infection * Lactic of 1.0, continue IVF and Abx * BC pending #Obesity * Complicating care * Encourage diet and lifestyle modification including 30-40 minutes weekly. * Will check A1c FULL CODE: FULL CODE DVT PROPHYLAXIS: Lovenox 40 mg SC DISPOSITION: Pending clinical improvement and transition to PO Abx. I, Ran Muñoz, have independently examined this patient and performed my own physical exam, as well as reviewed the documentation. I have discussed in detail with the resident / student the findings and plan of treatment as documented by the resident / student. I agree with their findings and treatment plan. I will continue to follow the patient during this hospital stay. Vital Signs Vital Signs Date Time Temp Pulse Resp B/P (MAP) Pulse Ox O2 Delivery O2 Flow Rate FiO2 07/19/19 14:42 99.3 07/19/19 12:40 07/19/19 12:30 132 20 97 Laboratory Data Labs 24H Laboratory Tests 2 07/19/19 13:18: Immature Granulocyte % (Auto) 0.5, Neutrophils (%) (Auto) 85.1H, Lymphocytes (%) (Auto) 7.6L, Monocytes (%) (Auto) 6.7H, Eosinophils (%) (Auto) 0.0, Basophils (%) (Auto) 0.1, Neutrophils # (Auto) 9.2H, Lymphocytes # (Auto) 0.8L, Monocytes # (Auto) 0.7, Eosinophils # (Auto) 0.0, Basophils # (Auto) 0.0, Nucleated Red Blood Cells % (auto) 0.0, Erythrocyte Sedimentation Rate 54H, Anion Gap 6L, Glomerular Filtration Rate 50.4L, Lactic Acid Level 1.0, Calcium Level 9.0, Total Bilirubin 1.0, Direct Bilirubin 0.3H, Aspartate Amino Transf (AST/SGOT) 27, Alanine Aminotransferase (ALT/SGPT) 36, Alkaline Phosphatase 57, C-Reactive Protein, Quantitative 18.70H, Total Protein 7.2, Albumin 3.5, Albumin/Globulin Ratio 0.95L, Human Chorionic Gonadotropin, Qual NEGATIVE CBC/BMP Laboratory Tests 07/19/19 13:18 Microbiology Microbiology 07/19/19 Blood Culture, Received Pending 07/19/19 Blood Culture, Received Pending Home Medications Scheduled Doxycycline Hyclate (Doxycycline Hyclate) 100 Mg Capsule, 100 MG PO BID Allergies Coded Allergies: amoxicillin (Verified Allergy, Intermediate, HIVES, 07/19/19) A-FIB/CHADSVASC A-FIB History Current/History of A-Fib/PAF?: No Current PO Anticoag Therapy: ALTAF Stephenson DO Jul 19, 2019 17:32 RAN MUÑOZ DO Jul 21, 2019 15:45
[2019-07-19 17:50] VITALS: BP 90/53
[2019-07-19 18:12] LABS: HEMOGLOBIN A1c 5.7 %
[2019-07-19] MEDS: NS 1,000 ML IV SCH (18:47)
[2019-07-19] MEDS ORDERED: diphenhydrAMINE 25 MG CAP PO ONE (19:00)
[2019-07-19] MEDS: DOCUSATE SODIUM 100 MG CAP PO SCH (20:38)
[2019-07-19] MEDS: ACETAMINOPHEN TAB 650MG DOSE (2X325MG) PO PRN (20:38)
--- NOTE | 2019-07-19 20:47 | PHACANCOPD ---
PHARMACY VANCOMYCIN DOSING Pt Demographics Demographics Patient Age:24 , Weight:101.200 , Gender: female Adjusted Body Weight Date: 07/19/19, Adjusted Body Weight: Kg Events Past 24 Hours Events Past 24 Hours: NO: Dialysis, Diuretic Therapy, Change in CrCl, Fever, Elevation in WBC, Pending Diagnostics, Pending Procedures, Other Vancomycin Vancomycin indication: Skin infection Vancomycin Target Ranges: 10-20 mcg/ml Vancomycin Load Y/N: Yes Load Dose Date Time Vancomycin Load Dose: 2000mg Date: 07/19/19 Time: 1600 Vancomycin Dose Date: 07/19/19. Current Vancomycin Dose: [ 1.5 grams every 12 hours ] Intermittent Dosing?: No Labs Labs Vital Signs Label Value Date Time Patient Temperature 98.0 degrees F 07/19/19 1230 Temperature Source Temporal 07/19/19 1230 Patient Temperature 102.0 degrees F 07/19/19 1257 Temperature Source Oral 07/19/19 1257 Patient Temperature 99.3 degrees F 07/19/19 1442 Temperature Source Oral 07/19/19 1442 Patient Temperature 99.7 degrees F 07/19/19 1720 Temperature Source Temporal 07/19/19 1720 Patient Temperature 99.4 degrees F 07/19/19 1750 Temperature Source Temporal 07/19/19 1750 Pulse 132 07/19/19 1230 Pulse 105 07/19/19 1720 Pulse 108 07/19/19 1750 Blood Pressure Assessment 116/58 (77) 07/19/19 1230 Location Left Arm Source Automatic Cuff (NIBP) Position Sitting Blood Pressure Assessment 96/58 (71) 07/19/19 1720 Blood Pressure Assessment 90/53 (65) 07/19/19 1750 Item Value Date Time White Blood Count 10.9 10^3/uL H 07/19/19 1318 Erythrocyte Sedimentation Rate 54 mm/hr H 07/19/19 1318 Micro Microbiology 07/19/19 Blood Culture, Received Pending 07/19/19 Blood Culture, Received Pending Creatinine Clearance Date:07/19/19. Creatinine Clearance: [ 51.8 mL/min ]. Assessment and Plan Maintaining Current Dose?: Yes Reason for dose change: No Dose Change Pharmacist Note Pharmacist Note Date: 07/19/19. Pharmacist note: Patient is a 24-year-old female who was admitted for a skin and soft tissue infection. Ms. Hartmann has received vancomycin therapy at [facility] last February. Her renal function is currently below normal, with a baseline serum creatinine of about 0.8. She was initiated on vancomycin therapy with a loading dose of 2 grams scheduled for today at 1600, with a subsequent maintenance dose of 1.5 grams every 12 hours starting tomorrow morning at 0400. A vancomycin trough was scheduled for 0300 on 07/21/19, with a goal trough of 10-20 mcg/dL. We will continue to monitor and make adjustments as needed. C[facility]E [facility] Jul 19, 2019 20:47
[2019-07-19 23:00] VITALS: BP 104/57
[2019-07-20] MEDS: NS 1,000 ML IV SCH (00:48)
[2019-07-20] MEDS: ACETAMINOPHEN TAB 650MG DOSE (2X325MG) PO PRN ×4 (00:48→16:38)
[2019-07-20 04:00] VITALS: BP 107/57
[2019-07-20] MEDS: VANCOMYCIN HCL 1,000 MG, VIAL MATE ADAPTER 1 EACH in D5W 250 ML IV SCH ×2 (04:16→16:10)
[2019-07-20] MEDS: VANCOMYCIN HCL 500 MG in D5W MINI-BAG PLUS 100 ML IV SCH ×2 (04:17→17:52)
[2019-07-20 06:30] LABS: BLOOD UREA NITROGEN 10 MG/DL (7-18); CALCIUM LEVEL 8.2 MG/DL (8.5-10.1); CARBON DIOXIDE LEVEL 25 MEQ/L (21-32); CHLORIDE LEVEL 111 MEQ/L (98-107); CREATININE FOR GFR 1.03 MG/DL (0.55-1.30); GLOMERULAR FILTRATION RATE > 60.0 (>60); GLUCOSE, FASTING 129 MG/DL (70-100); POTASSIUM SERUM 3.5 MEQ/L (3.5-5.1); SODIUM LEVEL 140 MEQ/L (136-145)
[2019-07-20 06:53] LABS: HEMATOCRIT 36.3 % (36.0-47.0); HEMOGLOBIN 11.8 g/dl (12.0-15.5); MEAN CORPUSCULAR HEMOGLOBIN 28.2 pg (27.0-33.0); MEAN CORPUSCULAR HGB CONC 32.5 g/dl (32.0-36.5); MEAN CORPUSCULAR VOLUME 86.6 fl (80.0-96.0); PLATELET COUNT, AUTOMATED 153 10^3/uL (150-450); RED BLOOD COUNT 4.19 10^6/uL (4.00-5.40); WHITE BLOOD COUNT 6.9 10^3/uL (4.0-10.0)
[2019-07-20] MEDS ORDERED: POTASSIUM CHLORIDE 10 MEQ SR TABLET PO ONE (08:00)
[2019-07-20 08:20] VITALS: BP 100/59
[2019-07-20] MEDS: DOCUSATE SODIUM 100 MG CAP PO SCH (08:22)
[2019-07-20] MEDS ORDERED: ENOXAPARIN 40 MG/0.4 ML SYRINGE (J1650) SC SCH (09:00)
--- NOTE | 2019-07-20 10:17 | IPNPDOC ---
Text Note Date of Service The patient was seen on 07/20/19. NOTE SUBJECTIVE: Patient is a 24-year-old female who presented to the emergency department on 07/18 with a chief complaint of left lower summary swelling and erythema in the setting of subjective fevers chills and nausea and vomiting for 24 hours. Patient was interviewed and examined in her hospital room this morning. She was found to be seated upright in bed in no acute distress. Pt did have a documented temp of 100.5 last evening at 2300, patient was administered Tylenol with noted improvement. She denies any other subjective fevers or chills. She has been eating and drinking without difficulty. Urinating well without BM. No difficulty ambulating. OBJECTIVE: VITAL SIGNS: See below. GENERAL APPEARANCE: Patient was interviewed and examined in immediate care. She was awake, alert and oriented. She did not appear any acute distress. HEENT: Normocephalic, atraumatic, EOMI, CARDIOVASCULAR: Rate and rhythm, normal S1 and S2 that any appreciable murmurs. LUNGS: Clear to auscultation bilaterally without any wheezes rales or rhonchi. Symmetric chest. rise and fall. Good air movement. ABDOMEN: Obese, soft, nontender, nondistended, no appreciable organomegaly. MUSCULOSKELETAL: Moves all extremities equally. EXTREMITIES: Large area of well demarcated mild erythema on the anterior aspect of patient's left lower extremity extending from ankle to 3 cm below the knee. Outlined in ED, reduced compared to examination yesterday. Area remains warm to the touch. No underlying fluctuance. NEUROLOGICAL: No focal neurologic deficits, no gait abnormalities, no noted dysarthria or aphasia. PSYCHIATRIC: Mood and affect are appropriate considering current medical condition. ASSESSMENT/PLAN: Patient is a 24 year old female, without any significantly past medical history, who presents to the ED complaining of 24 hour history of increasing L LE erythema in the setting of nausea, vomiting and subjective fever. Pt was admitted for IV Abx therapy. #L LE Moderate Cellulitis * Currently being treated with IV Vancomycin Day #2, noted improved on examination today. * Continue to monitor erythema reduction, improved. * LE U/S was negative * Plan to send patient home on PO Doxycyclin 100 mg BID for 10 days. * BC x2 pending #NORM, resolved s/p IVF * BUN/Cr of 12/1.38, previous Cr of 0.83 in 11/19 * BUN/Cr improved to 10.03 * Will D/C IVF as patient is eating and drinking without difficulty * Continue to monitor BMP tomorrow morning. #Sepsis Criteria, resolved * Patient is tachycardic with a pulse of 132, Tmax of 102.0 with suspected source of infection * Lactic of 1.0, continue IVF and Abx * BC pending CODE STATUS: Full code DVT PROPHYLAXIS: Lovenox 40mg DISPOSITION: Anticipate discharge early tomorrow morning assuming patient remains afebrile and negative BC VS,Fishbone, I+O VS, Fishbone, I+O Laboratory Tests 07/19/19 13:18 07/20/19 05:55 Vital Signs Date Time Temp Pulse Resp B/P (MAP) Pulse Ox O2 Delivery O2 Flow Rate FiO2 07/20/19 08:20 97.8 90 18 100/59 (73) 99 Room Air I&O- Last 24 Hours up to 6 AM 07/20/19 06:00 Intake Total 3470 ml Output Total 850 ml Balance 2620 ml ALTAF BUTTS DO Jul 20, 2019 10:17
[2019-07-20] MEDS ORDERED: DOXY100C PO (16:18)
--- NOTE | 2019-07-20 16:29 | DS.PDOC ---
Discharge Summary General Date of Admission Jul 19, 2019 at 16:22 Date of Discharge July 20, 2019 Primary Care Physician: MORENO OVIEDO DO Attending Physician: RAN MUÑOZ DO Discharge Summary PROCEDURES PERFORMED DURING STAY: [None]. ADMITTING DIAGNOSES: 1. Cellulitis of left lower extremity DISCHARGE DIAGNOSES: 1. Cellulitis of left lower extremity COMPLICATIONS/CHIEF COMPLAINT: Sepsis. HISTORY OF PRESENT ILLNESS: Patient is a 24-year-old female who presents to the emergency department today with a chief complaint of left lower extremity swelling and erythema which began approximately 24 hours prior to presentation. She also endorses 24-hour history of subjective fevers, chills, nausea and vomiting x4 with reduced oral intake. In the emergency department, patient was found to be febrile with a temperature of 102, pulse of 132, respiratory rate of 20, blood pressure 116/58 (77). She maintained oxygen saturation of 97% on room air. CBC demonstrated a mild leukocytosis of 10.9. CMP significant for an NORM with a BUN of 12 and a creatinine of 1.38. Lactic acid was negative. CRP was elevated at 18. She was treated for her fever with Tylenol, given a dose of IV vancomycin and a 1 L fluid bolus. Given her need for IV antibiotics, patient will be admitted to Med/Surg for further management and evaluation. Of historical note, patient was admitted to the hospital under the care of the surgical service in 03/16 for a similar presentation. Patient required drain placement. Wound culture found MSSA. She was treated with IV vancomycin and discharged home on Bactrim with uncomplicated follow-up. HOSPITAL COURSE: Patient was admitted with suspected diagnosis of sepsis 2/2 cellulitis of LLE and acute kidney injury in setting of nausea/vomiting, fevers. She was started on IVF hydration (NS 140cc/hr) and IV Vancomycin. On Hospital day #2, NORM improved and her cellulitis was found to have improved. Blood cultures were negative after 24 hours. She was discharged home with 10-day course of Doxycycline and told to follow up with her PCP within 7 days. DISCHARGE MEDICATIONS: Please see below. ALLERGIES: Please see below. PHYSICAL EXAMINATION ON DISCHARGE: VITAL SIGNS: Temperature 99.3, pulse 132, respiratory rate 20, blood pressure 116/58 (77), pulse oximetry 97% on room air. GENERAL APPEARANCE: Patient was interviewed and examined in immediate care. She was awake, alert and oriented. She did not appear any acute distress. HEENT: Normocephalic, atraumatic, EOMI, CARDIOVASCULAR: Rate and rhythm, normal S1 and S2 that any appreciable murmurs. LUNGS: Clear to auscultation bilaterally without any wheezes rales or rhonchi. Symmetric chest. rise and fall. Good air movement. ABDOMEN: Obese, soft, nontender, nondistended, no appreciable organomegaly. MUSCULOSKELETAL: Moves all extremities equally. EXTREMITIES: Large area of well demarcated erythema on the anterior aspect of patient's left lower extremity extending from ankle to 3 cm below the knee. Outlined in ED. No underlying fluctuance. NEUROLOGICAL: No focal neurologic deficits, no gait abnormalities, no noted dysarthria or aphasia. PSYCHIATRIC: Mood and affect are appropriate considering current medical condition. LABORATORY DATA: Please see below. IMAGING: DUPLEX US, LLE: FINDINGS: Left deep veins: Unremarkable. The common femoral, femoral, proximal profunda femoral and popliteal veins are patent without thrombus. Normal Doppler waveforms. Normal compressibility and/or augmentation response. Left superficial veins: Not fully evaluated. Soft tissues: Unremarkable. IMPRESSION: No evidence of deep vein thrombosis. PROGNOSIS: fair ACTIVITY: [As tolerated]. DIET: as tolerated DISCHARGE PLAN: home DISPOSITION: . DISCHARGE INSTRUCTIONS: 1. Complete 10 day course of Doxycycline 2. Follow up with PCP within 7 days ITEMS TO FOLLOWUP ON ON OUTPATIENT: 1. none DISCHARGE CONDITION: [Stable]. TIME SPENT ON DISCHARGE: Greater than 35 minutes. Vital Signs/I&Os Vital Signs Date Time Temp Pulse Resp B/P (MAP) Pulse Ox O2 Delivery O2 Flow Rate FiO2 07/20/19 08:20 97.8 90 18 100/59 (73) 99 Room Air I&O- Last 24 Hours up to 6 AM 07/20/19 06:00 Intake Total 3470 ml Output Total 850 ml Balance 2620 ml Laboratory Data Labs 24H Laboratory Tests 2 07/20/19 05:55: Nucleated Red Blood Cells % (auto) 0.0, Anion Gap 4L, Glomerular Filtration Rate > 60.0, Calcium Level 8.2L CBC/BMP Laboratory Tests 07/20/19 05:55 Microbiology Microbiology 07/19/19 Blood Culture - Preliminary, Resulted No growth after 24 hours . All specim... 07/19/19 Blood Culture - Preliminary, Resulted No growth after 24 hours . All specim... Discharge Medications Scheduled Doxycycline Hyclate (Doxycycline Hyclate) 100 Mg Capsule, 100 MG PO BID Allergies Coded Allergies: amoxicillin (Verified Allergy, Intermediate, HIVES, 07/19/19) GME ATTESTATION GME ATTESTATION My faculty preceptor for this patient encounter was physically present during the encounter and was fully available. All aspects of the patient interview, examination, medical decision making process, and medical care plan development were reviewed and approved by the faculty preceptor. The faculty preceptor is aware and concurs with the plan as stated in the body of this note and will attest to such by his/her cosignature. ATTENDING NOTE I, Ran Muñoz, have independently examined this patient and performed my own physical exam, as well as reviewed the documentation. I have discussed in detail with the resident / student the findings and plan of treatment as documented by the resident / student. I agree with their findings and treatment plan. TRACI SAMUEL MD Jul 20, 2019 16:29 RAN MUÑOZ DO Jul 21, 2019 15:44
[2019-07-20 16:45] VITALS: BP 100/61
== END 2019-07-20 20:05 | disposition home or self-care (01) | DRG 383 ==
LOC: M ED 12:29 → M ED INP 16:22 → ENRESERV 17:10 → M PED 17:54
PROVIDERS: ADMIT Internal Medicine; ATTEND Internal Medicine
DX: L03.116 Cellulitis of left lower limb (principal); N17.9 Acute kidney failure, unspecified; Z68.41 Body mass index [BMI] 40.0-44.9, adult; E66.9 Obesity, unspecified; Z88.0 Allergy status to penicillin

== ENCOUNTER → 2019-08-05 | Outpatient (CLI) | payer OTHER ==
[~2019-08-05] MED LIST changes: +DOXY100C PO
--- NOTE | 2019-08-05 14:25 | REP ---
bilateral lower extremity duplex Doppler venous ultrasound with evaluation for venous reflux. Real-time compression and duplex Doppler interrogation of bilateral lower extremity deep venous systems is performed. Bilaterally, common femoral, superficial femoral and popliteal veins are fully compressible with transducer pressure and demonstrate normal spontaneous and phasic flow without evidence of deep venous thrombosis. Note is made of a complex oval elongated area in the medial aspect of the left thigh, which demonstrates mixed internal echogenicity and small cystic areas. This measures 6.0 x 1.3 x 6.5 cm. There is no internal blood f low with Doppler evaluation. Patient reports that she had a large hematoma in this region which has improved gradually in the past year. On the right, evaluation for venous reflux demonstrates minimal reflux in the common femoral vein only in the standing position, and also in the distal femoral vein and popliteal vein with the bed tipped. There is an anterior accessory greater saphenous vein present with no reflux. There is no reflux in the greater saphenous vein at the saphenofemoral junction. There is reflux in the greater saphenous vein at the mid thigh with a duration of 3.6 seconds, AP diameter of 5 mm and also at the knee 3.0 seconds duration, AP diameter 7 mm. There is no reflux in the lesser saphenous vein which measures 5 mm. Posterior collateral vessel drains into the greater saphenous vein in the proximal thigh with the greater saphenous vein reflux peripheral to that anastomosis. On the left, there is reflux in the common femoral vein and proximal superficial femoral vein and throughout the greater saphenous vein only with the bed tipped. There is an anterior accessory greater saphenous vein present without reflux. There is no reflux in the standing position. The reflux in the greater saphenous vein in the saphenofemoral junction has a duration of 4 seconds, AP diameter 7 mm, at the mid thigh 2.7 seconds duration with AP diameter 5 mm, and at the knee 4.4 seconds duration with AP diameter 6 mm. Lesser saphenous vein demonstrates no reflux with AP diameter 3 mm. Electronically Signed by Ricky Cosme MD 08/05/2019 02:49 P
== END ==
LOC: M RAD 10:08
PROVIDERS: ATTEND Physician Assistant
DX: R60.9 Edema, unspecified (principal)

== ENCOUNTER 2019-09-23 19:13 | Inpatient (IN) | payer OTHER ==
[~2019-09-23] VITALS: Ht 154.9 cm; Wt 100.0 kg
[2019-09-23 19:49] LABS: BASO % 0.1 % (0.0-1.0); EOS % 0.1 % (0.0-3.0); HEMATOCRIT 39.8 % (36.0-47.0); HEMOGLOBIN 13.3 g/dl (12.0-15.5); LYMPH # 0.5 10^3/uL (1.5-5.0); LYMPH % 3.4 % (24.0-44.0); MEAN CORPUSCULAR HEMOGLOBIN 28.1 pg (27.0-33.0); MEAN CORPUSCULAR HGB CONC 33.4 g/dl (32.0-36.5); MEAN CORPUSCULAR VOLUME 84.1 fl (80.0-96.0); MONO # 0.7 10^3/uL (0.0-0.8); MONO % 4.9 % (0.0-5.0); NEUTROPHILS # 13.4 10^3/uL (1.5-8.5); NEUTROPHILS % 90.7 % (36.0-66.0); PLATELET COUNT, AUTOMATED 216 10^3/uL (150-450); RED BLOOD COUNT 4.73 10^6/uL (4.00-5.40); WHITE BLOOD COUNT 14.8 10^3/uL (4.0-10.0)
[2019-09-23 20:15] LABS: ALBUMIN 3.6 GM/DL (3.2-5.2); ALT/SGPT 32 U/L (12-78); BILIRUBIN,DIRECT 0.2 MG/DL (0.0-0.2); BILIRUBIN,TOTAL 0.8 MG/DL (0.2-1.0); BLOOD UREA NITROGEN 14 MG/DL (7-18); CALCIUM LEVEL 8.6 MG/DL (8.5-10.1); CARBON DIOXIDE LEVEL 26 MEQ/L (21-32); CHLORIDE LEVEL 102 MEQ/L (98-107); CREATININE FOR GFR 0.87 MG/DL (0.55-1.30); GLOMERULAR FILTRATION RATE > 60.0 (>60); GLUCOSE, FASTING 109 MG/DL (70-100); POTASSIUM SERUM 3.7 MEQ/L (3.5-5.1); SODIUM LEVEL 137 MEQ/L (136-145); TOTAL PROTEIN 7.3 GM/DL (6.4-8.2)
[2019-09-23] MEDS ORDERED: ISOVUE-370 76% 100ML VIAL As Ordered ONE (20:43)
[2019-09-23 20:54] LABS: HCG, SERUM QUALITATIVE NEGATIVE (NEGATIVE)
--- NOTE | 2019-09-23 21:08 | REPVR ---
PROCEDURE INFORMATION: Exam: CT Angiography Chest With Contrast Exam date and time: 09/23/2019 8:53 PM Age: 24 years old Clinical indication: Chest pain; Additional info: R/p pe TECHNIQUE: Imaging protocol: Computed tomographic angiography of the chest with intravenous contrast. 3D rendering: MIP and/or 3D reconstructed images were created by the technologist. Radiation optimization: All CT scans at this facility use at least one of these dose optimization techniques: automated exposure control; mA and/or kV adjustment per patient size (includes targeted exams where dose is matched to clinical indication); or iterative reconstruction. Contrast material: ISOVUE 370; Contrast volume: 75 ml; Contrast route: IV; COMPARISON: No relevant prior studies available. FINDINGS: Pulmonary arteries: Normal. No pulmonary emboli. Aorta: Unremarkable. No aortic aneurysm. No aortic dissection. Lungs: Unremarkable. No consolidation. No masses. Pleural space: Unremarkable. No pneumothorax. No pleural effusion. Heart: Unremarkable. No cardiomegaly. No pericardial effusion. Lymph nodes: Unremarkable. No enlarged lymph nodes. Bones/joints: Unremarkable. No acute fracture. Soft tissues: Unremarkable. IMPRESSION: No acute findings. Electronically signed by: Marcus Gee On 09/23/2019 21:08:23 PM
--- NOTE | 2019-09-23 21:18 | ECGEPIP ---
[facility] - ED Test Date: 2019-09-23 Pat Name: HEMANTH FUENTES Department: Room: - Gender: Female Instrumentation And Controls Technician: ct : 1995 Requested By: CECELIA CRUZ PA-C Order Number: [id number] Reading MD: Domingo Rapp Measurements Intervals [place] Rate: 117 P: 22 CO: 173 QRS: 12 QRSD: 89 T: 7 QT: 315 QTc: 440 Interpretive Statements SINUS TACHYCARDIA POSSIBLE INCOMPLETE RIGHT BUNDLE BRANCH BLOCK NO PRIORS FOR COMPARISON Electronically Signed on 09-23-2019 21:17:44 EDT by Domingo Rapp
--- NOTE | 2019-09-23 21:49 | REPVR ---
PROCEDURE INFORMATION: Exam: US Duplex Left Lower Extremity Veins, Limited Exam date and time: 09/23/2019 9:14 PM Age: 24 years old Clinical indication: Pain; Leg, lower; Left; Additional info: R/O dvt TECHNIQUE: Imaging protocol: Real-time Duplex ultrasound of the Left Lower Extremity with 2-D gabriel scale, color Doppler flow and spectral waveform analysis with image documentation. Limited exam focused on the left lower extremity veins. COMPARISON: US Duplex, Ext LOWER veins, bilat 08/05/2019 10:27 AM FINDINGS: Left deep veins: The common femoral, femoral, and popliteal veins are patent without thrombus. Normal Doppler waveforms. Normal compressibility and/or augmentation response. Left superficial veins: Unremarkable. Soft tissues: Unremarkable. IMPRESSION: No evidence of deep vein thrombosis. Electronically signed by: Darin Lindsay On 09/23/2019 21:49:11 PM
[2019-09-23] MEDS ORDERED: ADVI200C8 PO (22:15)
--- NOTE | 2019-09-23 22:58 | HPEPDOC ---
General Date of Admission Date of Service: September 23, 2019 Chief Complaint The patient is a 24-year-old female admitted with a reason for visit of Leg Swelling. Source: Patient Exam Limitations: No limitations Timing/Duration: Other Severity: Other (applicable) Associated Symptoms: Other (rash) History of Present Illness This is a 24 years old white female with past medical history of left lower extremity MSSA cellulitis on February 2019 and June 2019 present. Again with the rash on left lower extremity with pain and itching since this morning. Patient also complaining of shortness of breath. On presentation to ED, but she is completely asymptomatic now. Her only complaint is rash and pain at the left lower extremity, she denies any other complaints. Home Medications Scheduled PRN Ibuprofen (Advil) 200 Mg Capsule, 400 MG PO QID PRN for PAIN, (Reported) Allergies Coded Allergies: amoxicillin (Verified Allergy, Intermediate, HIVES, 07/19/19) Past Medical History Medical History MSSA left lower extremity, from at the left lower extremity in October 2018 by a horse stepping on her left lower extremity Family History Mother is from a heart disease. Father is alive Social History * Smoker: Denies Alcohol: Denies Drugs: denies A-FIB/CHADSVASC A-FIB History Current/History of A-Fib/PAF?: No Review of Systems Constitutional: Denies: Chills, Fever, Malaise, Night Sweats, Weakness, Fatigue, Weight Loss, Lethargy, Other ENT: Denies: Head Aches, Ear Pain, Dysphagia, Sinus Congestion, Post Nasal Drip, Sore Throat, Epistaxis, Other Symptoms Skin: Reports: Rash Pulmonary: Reports: Dyspnea Cardiovascular: Denies: Chest Pain, Palpitations, Orthopnea, Paroxysmal Noc. Dyspnea, Edema, Lt Headedness, Other Symptoms Gastrointestinal: Denies: Nausea, Vomiting, Abdominal Pain, Diarrhea, Constipation, Melena, Hematochezia, Other Symptoms Genitourinary: Denies: Dysuria, Frequency, Incontinence, Hematuria, Retention, Other Symptoms Hematologic: Denies: Bruising, Bleeding Excessively, Petecchia, Purpura, Enlar ged Lymph Nodes, Other Hematologic Endocrine: Denies: Polydipsia, Polyphagia, Polyuria, Heat Intolerance, Cold Intolerance, Other Endocrine Sx Musculoskeletal: Denies: Neck Pain, Back Pain, Shoulder Pain, Arm Pain, Hand Pain, Leg Pain, Foot Pain, Joint Pain, Muscle Pain, Spasms, Other Symptoms Neurological: Denies: Weakness, Numbness, Incoordination, Change in speech, Confusion, Seizures, Other Symptoms Psych: Denies: Mood Normal, Anxiety, Depression, Memory Issues, Thoughts of Self Harm, Anger, Thoughts of Harming Other, Other Psych Physical Examination General Exam: Positive: Alert, Cooperative Eye Exam: Positive: PERRLA, Conjunctiva & lids normal ENT Exam: Positive: Atraumatic, Mucous membr. moist/pink Neck Exam: Positive: Supple Chest Exam: Positive: Clear to auscultation Heart Exam: Positive: Rate Normal, Normal S1, Normal S2 Abdomen Exam: Positive: Normal bowel sounds, Soft Extremity Exam: Positive: Other (. Positive redness, irregular shaped rash on left lower extremity) Skin Exam: Positive: Other skin issue (as above) Neuro Exam: Positive: Strength at 5/5 X4 ext, Sensation Intact, Cranial Nerves 3-12 NL Psych Exam: Positive: Mood NL, Oriented x 3 Vital Signs Vital Signs Date Time Temp Pulse Resp B/P (MAP) Pulse Ox O2 Delivery O2 Flow Rate FiO2 09/23/19 19:47 18 09/23/19 19:14 99.0 113 98 Room Air Laboratory Data Labs 24H Laboratory Tests 2 09/23/19 19:41: Immature Granulocyte % (Auto) 0.8, Neutrophils (%) (Auto) 90.7H, Lymphocytes (%) (Auto) 3.4L, Monocytes (%) (Auto) 4.9, Eosinophils (%) (Auto) 0.1, Basophils (%) (Auto) 0.1, Neutrophils # (Auto) 13.4H, Lymphocytes # (Auto) 0.5L, Monocytes # (Auto) 0.7, Eosinophils # (Auto) 0.0, Basophils # (Auto) 0.0, Nucleated Red Blood Cells % (auto) 0.0, Anion Gap 9, Glomerular Filtration Rate > 60.0, Calcium Level 8.6, Total Bilirubin 0.8, Direct Bilirubin 0.2, Aspartate Amino Transf (AST/SGOT) 20, Alanine Aminotransferase (ALT/SGPT) 32, Alkaline Phosphatase 64, Total Protein 7.3, Albumin 3.6, Albumin/Globulin Ratio 1.0L, Human Chorionic Gonadotropin, Qual NEGATIVE 09/23/19 21:08: Lactic Acid Level 0.8 CBC/BMP Laboratory Tests 09/23/19 19:41 Microbiology Microbiology 09/23/19 Blood Culture, Received Pending 09/23/19 Blood Culture, Received Pending Problems (1) Cellulitis of left lower extremity Status: Acute Problem Text: Patient admitted admit patient to [facility] floor with a recurrent left lower extremity cellulitis, which has been MSSA in the past, but sensitive to vancomycin IV fluids normal saline 100 mL per hour Start vancomycin 750 mg IV every 12 hours and pharmacy to adjust the dose Tylenol and ibuprofen when necessary for pain Blood cultures ordered before starting IV antibiotics Patient will probably benefit from a infectious diseases consult in a.m. for her recurrent cellulitis of left lower extremity, in the past. Patient has been under care with surgical team for abscess of left lower extremity secondary to trauma by a horse stepping on her. Activity as tolerated Diet regular DVT prophylaxis with Lovenox Plan / VTE VTE Prophylaxis Ordered?: Yes CARMELO BRYSON MD September 23, 2019 22:58
[2019-09-23] MEDS ORDERED: VANCOMYCIN HCL 1,000 MG, VIAL MATE ADAPTER 1 EACH in D5W 250 ML IV ONE (23:00)
[2019-09-23] MEDS ORDERED: VANCOMYCIN HCL 750 MG, VIAL MATE ADAPTER 1 EACH in D5W 250 ML IV SCH (23:00)
[2019-09-23] MEDS ORDERED: ACETAMINOPHEN TAB 650MG DOSE (2X325MG) PO PRN (23:00)
[2019-09-23] MEDS ORDERED: IBUPROFEN 600 MG TAB PO PRN (23:00)
[2019-09-24] MEDS: NS 1,000 ML IV SCH ×2 (00:03→09:59)
[2019-09-24] MEDS: VANCOMYCIN HCL 1,000 MG, VIAL MATE ADAPTER 1 EACH in D5W 250 ML IV ONE ×2 (00:05→01:44)
--- NOTE | 2019-09-24 04:42 | PHACANCOPD ---
PHARMACY VANCOMYCIN DOSING Pt Demographics Demographics Patient Age:24 , Weight:100.000 , Gender: female Adjusted Body Weight Date: 09/24/19, Adjusted Body Weight: [68.7] Kg Vancomycin Vancomycin indication: LLE CELLULITIS(MRSA HX) Vancomycin Target Ranges: 15-20 mcg/ml Vancomycin Load Y/N: Yes Load Dose Date Time Vancomycin Load Dose: 2GM Date: 09/23 Time:00,02 Vancomycin Dose Date: 09/24/19. Current Vancomycin Dose: [1GM Q8H] Intermittent Dosing?: No Labs Micro Microbiology 09/24/19 Blood Culture, Received Pending 09/23/19 Blood Culture, Received Pending 09/23/19 Blood Culture, Received Pending Creatinine Clearance Date:09/24/19. Creatinine Clearance: [~100]. Assessment and Plan Maintaining Current Dose?: Yes Reason for dose change: No Dose Change Pharmacist Note Pharmacist Note Date: 09/24/19. Pharmacist note:[id number] ADMITTED W/RECURRENT LLE CELLULITIS(HX MRSA).HT:6",WT:100KG(ABW=68.7)SCR5:0.87, CRCL:~109(CALCULATED).penicillin allergy,MRSA PCR PENDING.Vancomycin 2 gm LD administered this morning between 12 mid-2:00. Regimen of 1 gram IV [id number] to begin today@10:00. First trough is scheduled for 09/24@1:00(prior to the 4th dose). Will continue to follow and make adjustments as needed [facility] September 24, 2019 04:42
[2019-09-24 06:10] LABS: HEMATOCRIT 36.8 % (36.0-47.0); HEMOGLOBIN 12.2 g/dl (12.0-15.5); MEAN CORPUSCULAR HEMOGLOBIN 28.6 pg (27.0-33.0); MEAN CORPUSCULAR HGB CONC 33.2 g/dl (32.0-36.5); MEAN CORPUSCULAR VOLUME 86.4 fl (80.0-96.0); PLATELET COUNT, AUTOMATED 192 10^3/uL (150-450); RED BLOOD COUNT 4.26 10^6/uL (4.00-5.40)
[2019-09-24 06:32] LABS: ALBUMIN 3.1 GM/DL (3.2-5.2); ALT/SGPT 27 U/L (12-78); BILIRUBIN,TOTAL 0.8 MG/DL (0.2-1.0); BLOOD UREA NITROGEN 10 MG/DL (7-18); CALCIUM LEVEL 8.3 MG/DL (8.5-10.1); CARBON DIOXIDE LEVEL 29 MEQ/L (21-32); CHLORIDE LEVEL 104 MEQ/L (98-107); CREATININE FOR GFR 0.78 MG/DL (0.55-1.30); GLOMERULAR FILTRATION RATE > 60.0 (>60); GLUCOSE, FASTING 90 MG/DL (70-100); POTASSIUM SERUM 3.5 MEQ/L (3.5-5.1); SODIUM LEVEL 140 MEQ/L (136-145); TOTAL PROTEIN 6.5 GM/DL (6.4-8.2)
[2019-09-24] MEDS: ENOXAPARIN 40MG/0.4ML SYRINGE (J1650 PER 10MG) SC SCH (09:54)
[2019-09-24] MEDS: VANCOMYCIN HCL 1,000 MG, VIAL MATE ADAPTER 1 EACH in D5W 250 ML IV SCH ×2 (09:55→17:44)
[2019-09-24 14:00] VITALS: BP 100/55
--- NOTE | 2019-09-24 21:16 | IPNPDOC ---
Date Seen The patient was seen on 09/24/19. Progress Note SUBJECTIVE: Vidhi was seen and examined this morning by the hospital service while lying upright in bed. She endorses some mild pain and tightness of the left lower extremity but nothing that has significantly worsened since admission. She is tolerating liquids and fluids without any issue and is ambulating well to and from the bathroom. She denies any fever, chills, night sweats, or numbness/paresthesias of extremities overnight. She also denies any chest pain, palpitations, shortness breath, abdominal pain, nausea, or vomiting. OBJECTIVE PHYSICAL EXAMINATION: VITAL SIGNS: Please see below. GENERAL: Calm and cooperative, young, obese female lying upright in bed. Actively receiving IV antibiotics. Alert and oriented 3. No acute distress. HEENT: Normocephalic, atraumatic. Noninjected, anicteric sclera. Trachea is midline. CARDIOVASCULAR: RRR, +S1, S2 with no rubs, murmurs, or gallops appreciated. Capillary refill less than 2 seconds. RESPIRATORY: Clear to auscultation bilaterally with no adventitious breath sounds appreciated. Symmetric chest expansion. Breathing room air. Speaking full sentences. ABDOMINAL: Soft, obese. Nontender and nondistended. Normoactive bowel sounds throughout. EXTREMITIES: Trace-to-1+ pitting edema bilateral lower extremities. Left lower extremity displays warmth as compared to the right, there is an area over the anterior left lower extremity of erythema approximately 15 cm long by 7 cm wide that he developed some of the medial aspect of the left lower chimney. This area of erythema blanches with pressure. There is moderate tenderness of the area without any induration, discharge, open wounds, or active discharge. 5/5 muscle strength testing of b/l LE. NEUROLOGICAL: Awake, alert and oriented 3. Sensation to light touch of kassandra ateral lower extremities is intact. Non-dysarthric speech. No focal neurologic deficits appreciated. PSYCHOLOGICAL: Mood and affect appear appropriate LABORATORY DATA, IMAGING STUDIES, MICROBIOLOGY: Please see below. DVT prophylaxis ordered?: Yes; anh tom ASSESSMENT AND PLAN: This is a 24-year-old female with h/o recurrent left lower extremity cellulitis over the past 6 months who presented to the ED on the evening of 09/22 for acute erythema, warmth, discomfort, and swelling of LLE. #Left lower extremity cellulitis -three initial BCx ordered upon admission and pending -WBC down to 9.0 after initial 14.8 -[place], cattle and dogs; states she was trampled by a horse in October 2018 that caused lacerations of LLE, ankle/foot fractures of right foot, and a deep hematoma of left medial thigh -Wound cultures on previous admissions identified as MSSA -Had initial left lower extremity cellulitis in February 2019 and was treated with vancomycin with placement of drain by Dr. Anton of general surgery -Second episode of left lower extremity cellulitis occurred 2 months ago (June 2019), where patient was treated with doxycycline; there was a subsequent f/u with vascular surgery to have LLE vein u/s study - - results showed some venous reflux per pt and she was told to begin wearing compression stockings -s/p 750mg IV vancomycin dose in ED; 1g IV vanc in 270 mL dextrose q8h now running Disposition: Pending improvement on antibiotics VS, I&O, [facility] Vital Signs/I&O Vital Signs Date Time Temp Pulse Resp B/P (MAP) Pulse Ox O2 Delivery O2 Flow Rate FiO2 09/24/19 14:00 98.9 105 19 100/55 (70) 98 Room Air I&O- Last 24 Hours up to 6 AM 09/24/19 06:00 Intake Total 300 ml Output Total 450 ml Balance -150 ml Laboratory Data 24H LABS Laboratory Tests 2 09/23/19 21:08: Lactic Acid Level 0.8 09/24/19 00:40: Methicillin-Resist S.aureus DNA PCR NOT DETECTED 09/24/19 05:24: Nucleated Red Blood Cells % (auto) 0.0, Anion Gap 7L, Glomerular Filtration Rate > 60.0, Calcium Level 8.3L, Magnesium Level 2.0, Total Bilirubin 0.8, Aspartate Amino Transf (AST/SGOT) 13, Alanine Aminotransferase (ALT/SGPT) 27, Alkaline Phosphatase 62, Total Protein 6.5, Albumin 3.1L, Albumin/Globulin Ratio 0.9L CBC/BMP Laboratory Tests 09/24/19 05:24 Microbiology Microbiology 09/24/19 Blood Culture, Received Pending 09/23/19 Blood Culture, Received Pending 09/23/19 Blood Culture, Received Pending WOLF PICKETT D.O. September 24, 2019 21:16
[2019-09-24 22:00] VITALS: BP 108/58
[2019-09-25] MEDS: VANCOMYCIN HCL 1,000 MG, VIAL MATE ADAPTER 1 EACH in D5W 250 ML IV SCH ×2 (02:01→08:20)
[2019-09-25 06:00] VITALS: BP 107/61
[2019-09-25 06:39] LABS: HEMATOCRIT 36.9 % (36.0-47.0); HEMOGLOBIN 11.8 g/dl (12.0-15.5); MEAN CORPUSCULAR VOLUME 87.4 fl (80.0-96.0); PLATELET COUNT, AUTOMATED 192 10^3/uL (150-450); RED BLOOD COUNT 4.22 10^6/uL (4.00-5.40); WHITE BLOOD COUNT 4.7 10^3/uL (4.0-10.0)
[2019-09-25 07:07] LABS: ALBUMIN 2.8 GM/DL (3.2-5.2); ALT/SGPT 30 U/L (12-78); BILIRUBIN,TOTAL 0.4 MG/DL (0.2-1.0); BLOOD UREA NITROGEN 8 MG/DL (7-18); CALCIUM LEVEL 8.3 MG/DL (8.5-10.1); CARBON DIOXIDE LEVEL 29 MEQ/L (21-32); CHLORIDE LEVEL 108 MEQ/L (98-107); CREATININE FOR GFR 0.79 MG/DL (0.55-1.30); GLOMERULAR FILTRATION RATE > 60.0 (>60); GLUCOSE, FASTING 87 MG/DL (70-100); POTASSIUM SERUM 3.9 MEQ/L (3.5-5.1); SODIUM LEVEL 143 MEQ/L (136-145); TOTAL PROTEIN 6.3 GM/DL (6.4-8.2)
[2019-09-25] MEDS: ENOXAPARIN 40MG/0.4ML SYRINGE (J1650 PER 10MG) SC SCH (08:20)
[2019-09-25] MEDS ORDERED: BACT800T5 PO (11:56)
== END 2019-09-25 13:48 | disposition home or self-care (01) | DRG 383 ==
LOC: M ED 19:13 → EEVIPCON 22:46 → M ED INP 22:46 → ENRESERV 23:36 → M MSPAV 09-24 00:20
PROVIDERS: ADMIT Internal Medicine; ATTEND Internal Medicine
DX: L03.116 Cellulitis of left lower limb (principal); Z88.0 Allergy status to penicillin

== ENCOUNTER → 2019-09-30 | Outpatient (REF) | payer OTHER ==
[~2019-09-30] MED LIST changes: +ADVI200C8 PO
== END ==
LOC: M SFHCPLAZ 15:11
PROVIDERS: ATTEND Internal Medicine Infectious Disease
DX: A49.01 Methicillin susceptible Staphylococcus aureus infection, unspecified site (principal)

== ENCOUNTER → 2020-05-10 | Outpatient (REF) | payer OTHER ==
[2020-05-10 19:11] LABS: CHLAMYDIA DNA AMPLIFICATION NEGATIVE (NEGATIVE); GC DNA AMPLIFICATION POSITIVE (NEGATIVE)
== END ==
LOC: M SFHCCLAY 13:51
PROVIDERS: ATTEND Physician Assistant
DX: R30.0 Dysuria (principal)

== ENCOUNTER → 2020-05-11 | Outpatient (REF) | payer OTHER ==
[2020-05-12 12:33] LABS: HEPATITIS A ANTIBODY IGM NEGATIVE (NEGATIVE); HEPATITIS B CORE ANTIBODY IGM NEGATIVE (NEGATIVE); HEPATITIS B SURFACE ANTIGEN NEGATIVE (NEGATIVE); HIV 1&2 SCREEN CENTAUR NEGATIVE (NEGATIVE)
== END ==
LOC: M SFHCCLAY 14:24
PROVIDERS: ATTEND Physician Assistant
DX: Z20.9 Contact with and (suspected) exposure to unspecified communicable disease (principal)

== ENCOUNTER 2020-09-21 20:36 | Emergency (ER) | payer OTHER ==
[~2020-09-21] VITALS: Ht 154.9 cm; Wt 64.5 kg
[2020-09-21] MEDS ORDERED: NS 1,000 ML IV ONE (22:30)
[2020-09-21] MEDS ORDERED: KETOROLAC 30 MG/ML 1ML VIAL IV ONE (22:30)
[2020-09-21] MEDS ORDERED: cefTRIAXone SOD 1 GM in D5W MINI-BAG PLUS 50 ML IV ONE (22:30)
[2020-09-21 22:49] LABS: BASO % 0.1 % (0.0-1.0); HEMATOCRIT 41.5 % (36.0-47.0); HEMOGLOBIN 13.8 g/dl (12.0-15.5); LYMPH # 0.4 10^3/uL (1.5-5.0); LYMPH % 2.3 % (24.0-44.0); MEAN CORPUSCULAR HEMOGLOBIN 29.8 pg (27.0-33.0); MEAN CORPUSCULAR HGB CONC 33.3 g/dl (32.0-36.5); MEAN CORPUSCULAR VOLUME 89.6 fl (80.0-96.0); MONO # 0.8 10^3/uL (0.0-0.8); MONO % 4.9 % (2.0-8.0); NEUTROPHILS # 14.5 10^3/uL (1.5-8.5); NEUTROPHILS % 92.3 % (36.0-66.0); PLATELET COUNT, AUTOMATED 223 10^3/uL (150-450); RED BLOOD COUNT 4.63 10^6/uL (4.00-5.40); WHITE BLOOD COUNT 15.7 10^3/uL (4.0-10.0)
[2020-09-21 23:13] LABS: ERYTHROCYTE SEDIMENTATION RATE 21 mm/hr (0-20)
[2020-09-21 23:21] LABS: BLOOD UREA NITROGEN 17 MG/DL (7-18); C REACTIVE PROTEIN QUANTITATIV 1.67 MG/DL (0.00-0.30); CALCIUM LEVEL 8.6 MG/DL (8.5-10.1); CARBON DIOXIDE LEVEL 30 MEQ/L (21-32); CHLORIDE LEVEL 105 MEQ/L (98-107); CREATININE FOR GFR 0.87 MG/DL (0.55-1.30); GLOMERULAR FILTRATION RATE > 60.0 (>60); GLUCOSE, FASTING 108 MG/DL (70-100); SODIUM LEVEL 140 MEQ/L (136-145)
[2020-09-21 23:46] LABS: HCG, SERUM QUALITATIVE NEGATIVE (NEGATIVE)
--- NOTE | 2020-09-21 23:47 | REPVR ---
PROCEDURE INFORMATION: Exam: US Duplex Left Lower Extremity Veins, Limited Exam date and time: 09/21/2020 11:07 PM Age: 25 years old Clinical indication: Other: Calf pain; Additional info: Erythema, calf pain TECHNIQUE: Imaging protocol: Real-time Duplex ultrasound of the Left Lower Extremity with 2-D gabriel scale, color Doppler flow and spectral waveform analysis with image documentation. Limited exam focused on the left lower extremity veins. COMPARISON: US Duplex, Ext,LOWER veins,unilat 09/23/2019 9:21 PM FINDINGS: Left deep veins: Unremarkable. The common femoral, femoral, proximal profunda femoral and popliteal veins are patent without thrombus. Normal Doppler waveforms. Normal compressibility and/or augmentation response. Left superficial veins: Unremarkable. Saphenofemoral junction is patent without thrombus. Soft tissues: Unremarkable. Lymph nodes: Numerous left inguinal lymph nodes are noted measuring up to 3.0 x 3.6 x 1.2 cm. IMPRESSION: 1. Negative left lower extremity venous duplex exam without evidence of deep venous thrombosis. 2. Borderline left inguinal nodes. Electronically signed by: Tom Uriarte On 09/21/2020 23:46:41 PM
[2020-09-22] MEDS ORDERED: DOXY100C37 PO (00:07)
[2020-09-22] MEDS ORDERED: KETO10TAB PO (00:07)
[2020-09-22] MEDS ORDERED: DOXYCYCLINE HYCLATE 100MG TABLET PO ONE (00:10)
[2020-09-22 00:23] VITALS: BP 122/78
== END 2020-09-22 00:34 | disposition home or self-care (01) ==
LOC: M ED 20:36
DX: L03.116 Cellulitis of left lower limb (principal); Z88.0 Allergy status to penicillin
CPT/HCPCS: 80048; 83605; 84703; 85025; 85652; 86140; 87040; 93971; 96365; 96375; 99283; J0696; J1885

== ENCOUNTER → 2020-11-24 | Outpatient (REF) | payer OTHER ==
[~2020-11-24] MED LIST changes: +DOXY1CAP62 PO; +KETO10TAB PO
[2020-11-27 13:35] LABS: GC DNA AMPLIFICATION NEGATIVE (NEGATIVE)
== END ==
LOC: M SFHCCLAY 17:03
PROVIDERS: ATTEND Physician Assistant
DX: N89.8 Other specified noninflammatory disorders of vagina (principal)

== ENCOUNTER → 2020-11-29 | Outpatient (REF) | payer OTHER ==
[2020-11-29 17:58] LABS: HEPATITIS A ANTIBODY IGM NEGATIVE (NEGATIVE); HEPATITIS B CORE ANTIBODY IGM NEGATIVE (NEGATIVE); HEPATITIS B SURFACE ANTIGEN NEGATIVE (NEGATIVE); HEPATITIS C VIRUS ABY INDEX 0.1 INDEX (<0.8); HIV 1&2 SCREEN CENTAUR NEGATIVE (NEGATIVE)
== END ==
LOC: M SFHCCLAY 10:25
PROVIDERS: ATTEND Physician Assistant
DX: Z20.9 Contact with and (suspected) exposure to unspecified communicable disease (principal)

== ENCOUNTER → 2021-01-24 | Outpatient (CLI) | payer OTHER ==
[~2021-01-24] MED LIST changes: -DOXY100C PO; +DOXY100C3 PO
--- NOTE | 2021-01-24 14:21 | REP ---
INDICATION: DI DI TWINS DATING AND VIABILITY. COMPARISON: None. TECHNIQUE: Transabdominal scanning FINDINGS: Within the uterus there are 2 anechoic structures each having increased echoes surrounding them consistent with decidual reactions. Within each gestational sac there is echogenic material consistent with a pole the mean crown-rump length measurement of fetus a is consistent with a 10 week 3 day gestational age in the mean crown-rump length measurement of fetus B is also consistent with a 10 week 3 day gestational age. Doppler interrogation of the heart of fetus a shows a heart rate of 169 beats per minute. Doppler interrogation of the heart of fetus B shows a heart rate of 170 beats per minute. The cervix measures 3.2 cm in length and is closed. IMPRESSION: There is a diet chorionic diamniotic twin gestation as described above. The technologist did not calculate the MONICA based on today's exam. <Electronically signed by Nicholas Najera > 01/24/21 [id number]
== END ==
LOC: M WHC 13:23
PROVIDERS: ATTEND Advanced Practice Midwife
DX: O30.041 Twin pregnancy, dichorionic/diamniotic, first trimester (principal)

== ENCOUNTER → 2021-01-25 | Outpatient (CLI) | payer OTHER | LOC: M PLALAB 12:25 | PROVIDERS: ATTEND Advanced Practice Midwife | DX: O30.001 Twin pregnancy, unspecified number of placenta and unspecified number of amniotic sacs, first trimester (principal) ==

== ENCOUNTER → 2021-02-22 | Outpatient (REF) | payer OTHER ==
[~2021-02-22] MED LIST changes: +DOXY-443 PO; -DOXY1CAP62 PO
[2021-02-22 18:16] LABS: HEMATOCRIT 34.6 % (36.0-47.0); HEMOGLOBIN 11.8 g/dl (12.0-15.5); MEAN CORPUSCULAR HEMOGLOBIN 30.6 pg (27.0-33.0); MEAN CORPUSCULAR HGB CONC 34.1 g/dl (32.0-36.5); MEAN CORPUSCULAR VOLUME 89.6 fl (80.0-96.0); PLATELET COUNT, AUTOMATED 224 10^3/uL (150-450); RED BLOOD COUNT 3.86 10^6/uL (4.00-5.40); WHITE BLOOD COUNT 7.7 10^3/uL (4.0-10.0)
[2021-02-22 19:36] LABS: HEPATITIS C VIRUS ABY INDEX < 0.0 INDEX (<0.8); HIV 1&2 SCREEN CENTAUR NEGATIVE (NEGATIVE)
== END ==
LOC: M PLALAB 17:20
PROVIDERS: ATTEND Advanced Practice Midwife
DX: O30.041 Twin pregnancy, dichorionic/diamniotic, first trimester (principal)

== ENCOUNTER → 2021-03-21 | Outpatient (REF) | payer OTHER | LOC: M PLALAB 15:30 | PROVIDERS: ATTEND Advanced Practice Midwife | DX: O30.041 Twin pregnancy, dichorionic/diamniotic, first trimester (principal) ==

== ENCOUNTER → 2021-03-21 | Outpatient (REF) | payer OTHER ==
[~2021-03-21] MED LIST changes: +ALLE60TA69 PO; +OSEL75CA PO; +PRENTAB9 PO
[2021-03-21 19:42] LABS: GC DNA AMPLIFICATION NEGATIVE (NEGATIVE)
== END ==
LOC: M SFHCWAGY 16:57
PROVIDERS: ATTEND Advanced Practice Midwife
DX: O30.041 Twin pregnancy, dichorionic/diamniotic, first trimester (principal)

== ENCOUNTER → 2021-04-02 | Outpatient (CLI) | payer OTHER ==
[~2021-04-02] MED LIST changes: -ALLE60TA69 PO; -OSEL75CA PO; -PRENTAB9 PO
--- NOTE | 2021-04-02 16:30 | REP ---
INDICATION: TWIN , DICHORIONIC/DIAMNIOTIC, SECOND TRIMESTER. COMPARISON: 01/24/2021. TECHNIQUE: Real-time sonographic evaluation of the gravid uterus performed. FINDINGS: There is a living intrauterine twin gestation, diamniotic dichorionic. Estimated gestational age is19 weeks 6 days, EDC 08/21/2021. Today's measurements indicate appropriate concordant growth. Closed cervical length is measured at 3.9 cm. Fetus a: Presentation: Cephalic Placenta posterior, grade 0, without evidence of placenta previa. There is a possible succenturiate lobe. heart rate is recorded at 132 beats per minute. Amniotic fluid is subjectively normal. Biometry chart: BPD: 51 mm, 21 weeks 4 days, 95th percentile. HC: 180 mm, 20 weeks 3 days, 66th percentile AC: 147 mm, 20 weeks 0 days, 52nd percentile Femur length: 33 mm, 20 weeks 1 days, 58th percentile HC to AC ratio: 1.22, normal range 1.06-1.25. Estimated weight: 335g, 62nd percentile. 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 Left-sided stomach: Grossly normal Kidneys: Grossly normal Bladder: Grossly normal Cord Insertion: Grossly normal 3 vessel cord: Grossly normal Spine: Grossly normal Fetus b: Presentation: Variable Placenta posterior, grade 0, without evidence of placenta previa. heart rate is recorded at 146 beats per minute. Amniotic fluid is subjectively normal. Biometry chart: BPD: 47 mm, 20 weeks 1 days, 58th percentile. HC: 178 mm, 20 weeks 2 days, 63rd percentile AC: 144 mm, 19 weeks 5 days, 48th percentile Femur length: 33 mm, 20 weeks 1 days, 59th percentile HC to AC ratio: 1.23, normal range 1.06-1.25. Estimated weight: 326g, 54th percentile. anatomy: Cranium: Grossly normal Lateral Ventricles/Choroid Plexus: Grossly normal Posterior Fossa/Cerebellum: Grossly normal Nose/lips/profile: Grossly normal Four chamber heart: Grossly normal Right ventricular outflow tract: Grossly normal Left ventricular outflow tract: Grossly normal Left-sided stomach: Grossly normal Kidneys: Grossly normal Bladder: Grossly normal Cord Insertion: Grossly normal 3 vessel cord: Grossly normal Spine: Grossly normal IMPRESSION: Intrauterine twin gestation as above with appropriate concordant growth..For fetus a, the left heart structures appear quite hypoplastic and the aortic arch is not clearly visualized, with 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 Anatomy for fetus B is grossly unremarkable. <Electronically signed by Ricky Cosme > 04/02/21 [id number]
== END ==
LOC: M WHC 14:05
PROVIDERS: ATTEND Advanced Practice Midwife
DX: O30.042 Twin pregnancy, dichorionic/diamniotic, second trimester (principal); Z3A.20 20 weeks gestation of pregnancy

== ENCOUNTER 2021-04-23 14:35 | Outpatient (CLI) | payer OTHER ==
[~2021-04-23] VITALS: Ht 154.9 cm; Wt 68.9 kg
[2021-04-23 15:01] VITALS: BP 108/59
[2021-04-23] MEDS ORDERED: ACETAMINOPHEN 500 MG TAB PO ONE (15:35)
[2021-04-23] MEDS ORDERED: KETOROLAC 30 MG/ML 1ML VIAL IV ONE (15:35)
[2021-04-23] MEDS ORDERED: LACTATED RINGER'S 1000 ML IV ONE (15:35)
[2021-04-23 15:57] LABS: APPEARANCE, URINE HAZY (CLEAR); BACTERIA, URINE AUTO NEGATIVE (NEGATIVE); BILIRUBIN, URINE AUTO NEGATIVE (NEGATIVE); BLOOD, URINE BLOOD 3+ (NEGATIVE); COLOR, URINE YELLOW (YELLOW); GLUCOSE, URINE (UA) AUTO NEGATIVE (NEGATIVE); KETONE, URINE AUTO TRACE mg/dL (NEGATIVE); LEUKOCYTE ESTERASE, URINE AUTO NEGATIVE (NEGATIVE); MUCUS, URINE MODERATE (NEGATIVE); NITRITE, URINE AUTO NEGATIVE (NEGATIVE); PROTEIN, URINE AUTO 1+ mg/dL (NEGATIVE); RBC, URINE AUTO TNTC /HPF (0-3); SPECIFIC GRAVITY URINE AUTO 1.025 (1.002-1.035); SQUAMOUS EPITHELIAL CELL UR AU 10 /HPF (0-6); WBC, URINE AUTO 2 /HPF (0-3)
[2021-04-23] MEDS ORDERED: ACET-897 PO (15:59)
[2021-04-23] MEDS ORDERED: PRENTAB9 PO (15:59)
[2021-04-23 16:05] VITALS: BP 121/66
--- NOTE | 2021-04-23 16:22 | REP ---
INDICATION: evaluate placentas of di/di twins after a fall COMPARISON: 04/02/2021 TECHNIQUE: Transabdominal obstetrical ultrasound with color Doppler evaluation. FINDINGS: Examination demonstrates known dichorionic diamniotic twin live intrauterine . Selected gestational age: 22 weeks 6 days with estimated date of delivery 08/21/2021. Posterior placenta noted with anterior succenturiate lobe. There is no evidence for abruption or placenta previa. Cervix measures 3.5 cm in length and appears closed. TWIN A: Cephalic presentation towards left side of the uterus. heart rate equals 143 beats per minute. Placenta noted posteriorly and grade 0. Amniotic fluid volume deepest pocket: 5.2 cm Umbilical artery SD ratio: 2.99 (2.52-5.25) TWIN B: Oblique presentation towards right side of the uterus. heart rate equals 156 beats per minute. Placenta noted posteriorly and grade 0. Amniotic fluid volume deepest pocket: 3.6 cm Umbilical artery SD ratio: 2.61 (2.52-5.25) IMPRESSION: 1. Live twin gestation. 2. Posterior placenta with anterior succenturiate lobe. No evidence for previa or abruption noted. <Electronically signed by Jan Bernard > 04/23/21 [id number]
[2021-04-23 16:34] LABS: RSV AMPLIFICATION NEGATIVE (NEGATIVE)
[2021-04-23] MEDS ORDERED: OSELTAMIVIR PHOSPHATE 75 MG CAP (TAMIFLU) PO ONE (16:55)
[2021-04-23 17:04] LABS: HEMATOCRIT 31.5 % (36.0-47.0); HEMOGLOBIN 10.8 g/dl (12.0-15.5); MEAN CORPUSCULAR HEMOGLOBIN 31.6 pg (27.0-33.0); MEAN CORPUSCULAR HGB CONC 34.3 g/dl (32.0-36.5); MEAN CORPUSCULAR VOLUME 92.1 fl (80.0-96.0); PLATELET COUNT, AUTOMATED 145 10^3/uL (150-450); RED BLOOD COUNT 3.42 10^6/uL (4.00-5.40); WHITE BLOOD COUNT 5.1 10^3/uL (4.0-10.0)
[2021-04-23] MEDS ORDERED: OSEL75CA PO (17:16)
[2021-04-23 17:18] VITALS: BP 98/55
--- NOTE | 2021-04-23 17:54 | IPNPDOC ---
Text Note Date of Service The patient was seen on 04/23/21. NOTE Subjective: Hemanth is a 26-year-old who is a at 22.6 days gestation with an MONICA of 08/21/21 with diamniotic dichorionic twin gestation. She initiated care in her first trimester of with [facility]. 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 She presents to labor and delivery with back pain that wraps around to the front of her abdomen. Pain started a few hours after she fell on the ice at 0500. She hasn't done anything to help with pain. She reports active movement now but reported having decreased movement this morning. She denies vaginal bleeding or leaking of fluid. She denies c ontractions. Objective: VS, labs and ultrasound: see below. FHR: Twin A: 140; Twin B: 135. Kulm: occasional uterine contractions General: Awake and alert. Does not appear to be in any distress but her cheeks are flushed. Respiratory: Regular rate, no use of accessory muscles Abdomen: soft to palpation without tenderness Musculoskeletal: no CVA tenderness. SVE: CLOSED/50/HIGH, posterior, no show, soft. Assessment: IUP at 22.6 weeks gestation, di/di twins, back pain after fall, Influenza A diagnosis Plan: Reviewed implications of influenza on herself and . Reviewed comfort measures for flu. Started on Tamiflu now and sent to the pharmacy for 75 mg BID for 5 days. Encouraged Covid vaccine. Patient instructed to call with labor signs, decreased movement, leaking of fluid, vagina bleeding, SOB, fevers not controlled with Tylenol. Reviewed dosing of Tylenol. [facility]. Discharged to home with precautions. VS,Fishbone, I+O VS, Fishbone, I+O Laboratory Tests 04/23/21 16:23 Item Value Date Time White Blood Count 5.1 10^3/uL 04/23/21 1623 Red Blood Count 3.42 10^6/uL L 04/23/21 1623 Hemoglobin 10.8 g/dl L 04/23/21 1623 Hematocrit 31.5 % L 04/23/21 1623 Mean Corpuscular Volume 92.1 fl 04/23/21 1623 Mean Corpuscular Hemoglobin 31.6 pg 04/23/21 1623 Mean Corpuscular Hemoglobin Concent 34.3 g/dl 04/23/21 1623 Red Cell Distribution Width 13.2 % 04/23/21 1623 Platelet Count 145 10^3/uL L 04/23/21 1623 Item Value Date Time Urine Color YELLOW 04/23/21 1539 Urine Appearance HAZY 04/23/21 1539 Urine pH 6.0 UNITS 04/23/21 1539 Urine Specific Merkel 1.025 04/23/21 1539 Urine Protein 1+ mg/dL H 04/23/21 1539 Urine Glucose (Auto)(UA) NEGATIVE mg/dL 04/23/21 1539 Urine Ketones (Auto) TRACE mg/dL H 04/23/21 1539 Urine Blood 3+ H 04/23/21 1539 Urine Nitrite NEGATIVE 04/23/21 1539 Urine Bilirubin NEGATIVE 04/23/21 1539 Urine Urobilinogen 2.0 mg/dL H 04/23/21 1539 Urine WBC (Auto) 2 /HPF 04/23/21 1539 Urine Leukocyte Esterase (Auto) NEGATIVE 04/23/21 1539 Urine RBC (Auto) TNTC /HPF H 04/23/21 1539 Urine Hyaline Casts (Auto) 0 /LPF 04/23/21 1539 Urine Bacteria (Auto) NEGATIVE 04/23/21 1539 Urine Squamous Epithelial Cells 10 /HPF 04/23/21 1539 Item Value Date Time Coronavirus (COVID-19)(PCR) NEGATIVE 04/23/21 1539 Influenza Type A (RT-PCR) POSITIVE H 04/23/21 1539 Influenza Type B (RT-PCR) NEGATIVE 04/23/21 1539 Respiratory Syncytial Virus (PCR) NEGATIVE 04/23/21 1539 Result Comment: No cells seen. /Adult Volume of Vials of Rhogam RBC Ratio FMH Indicated 0.0000-0.0045 up to 15 mL 1 0.0046-0.0090 15-30 mL 2 0.0091-0.0135 30-45 mL 3 0.0136-0.0180 45-60 mL 4 0.0181-0.0225 60-75 mL 5 For each ratio interval of 0.0045, one additional vial of Rhogam is indicated. Vital Signs Date Time Temp Pulse Resp B/P (MAP) Pulse Ox O2 Delivery O2 Flow Rate FiO2 04/23/21 16:05 100.2 117 18 121/66 (84) 04/23/21 15:01 100 Room Air NAME: HEMANTH FUENTES DATE OF : 1995 AGE: 26 SEX: F REPORT #: [id number] [facility] TECHNOLOGIST: NAEEM DOCTOR: EH COOPER CNM Ordered for Date&Time: 04/23/21 151 cc: [~ rep ct ivnm] Service Date&Time: 04/23/21 1557 EXAMINATION REQUESTED: Obs. Limited, [place] US REASON FOR PATIENT VISIT: LABOR CHECK REASON FOR EXAM/COMMENT: evaluate placentas of di/di twins after a fall INDICATION: evaluate placentas of di/di twins after a fall COMPARISON: 04/02/2021 TECHNIQUE: Transabdominal obstetrical ultrasound with color Doppler evaluation. FINDINGS: Examination demonstrates known dichorionic diamniotic twin live intrauterine . Selected gestational age: 22 weeks 6 days with estimated date of del oral 08/21/2021. Posterior placenta noted with anterior succenturiate lobe. There is no evidence for abruption or placenta previa. Cervix measures 3.5 cm in length and appears closed. TWIN A: Cephalic presentation towards left side of the uterus. heart rate equals 143 beats per minute. Placenta noted posteriorly and grade 0. Amniotic fluid volume deepest pocket: 5.2 cm Umbilical artery SD ratio: 2.99 (2.52-5.25) TWIN B: Oblique presentation towards right side of the uterus. heart rate equals 156 beats per minute. Placenta noted posteriorly and grade 0. Amniotic fluid volume deepest pocket: 3.6 cm Umbilical artery SD ratio: 2.61 (2.52-5.25) IMPRESSION: 1. Live twin gestation. 2. Posterior placenta with anterior succenturiate lobe. No evidence for previa or abruption noted. EH COOPER CNM Apr 23, 2021 17:54
[2021-04-23 18:18] VITALS: BP 108/60
== END 2021-04-23 18:45 | disposition home or self-care (01) ==
LOC: M LDO 14:35
PROVIDERS: ATTEND Advanced Practice Midwife
DX: O60.02 Preterm labor without delivery, second trimester (principal); O30.042 Twin pregnancy, dichorionic/diamniotic, second trimester; O09.213 Supervision of pregnancy with history of pre-term labor, third trimester; O35.1XX1 Maternal care for (suspected) chromosomal abnormality in fetus, fetus 1; O99.512 Diseases of the respiratory system complicating pregnancy, second trimester; O99.842 Bariatric surgery status complicating pregnancy, second trimester; J10.89 Influenza due to other identified influenza virus with other manifestations; Q23.4 Hypoplastic left heart syndrome; Y92.9 Unspecified place or not applicable; Y93.9 Activity, unspecified; Y99.9 Unspecified external cause status; Z3A.22 22 weeks gestation of pregnancy
CPT/HCPCS: 59025; 76815; 76817; 76820; 81001; 85027; 85460; 87086; 87631; J1885

== ENCOUNTER 2021-06-07 12:47 | Outpatient (CLI) | payer OTHER ==
[~2021-06-07] VITALS: Ht 154.9 cm; Wt 70.9 kg
[~2021-06-07 12:47] MED LIST changes: +OSEL75CA PO; +PRENTAB9 PO
[2021-06-07 13:07] VITALS: BP 120/74
[2021-06-07] MEDS ORDERED: ALLE60TA69 PO (13:07)
[2021-06-07] MEDS ORDERED: BETAMETHASONE SOLUSPAN 6MG/ML 5ML VIAL (J0702 PER 3MG) IM ONE (14:30)
[2021-06-07] MEDS ORDERED: AZITHROMYCIN 250MG TABLET PO ONE (14:50)
[2021-06-07] MEDS ORDERED: ceFAZolin 1GM VIAL (J0690 PER 500MG) IM ONE (14:50)
[2021-06-07] MEDS ORDERED: MAG Sulf (OBGYN) 20GM/500ML 20,000 MG in IV 1 EA IV SCH (15:10)
[2021-06-07] MEDS ORDERED: MAG Sulf (L&D) 4 GM/100 ML 4 GM in IV 1 EA IV ONE (15:10)
[2021-06-07 15:14] LABS: HEMOGLOBIN 13.2 g/dl (12.0-15.5); MEAN CORPUSCULAR HEMOGLOBIN 30.6 pg (27.0-33.0); MEAN CORPUSCULAR HGB CONC 33.8 g/dl (32.0-36.5); MEAN CORPUSCULAR VOLUME 90.5 fl (80.0-96.0); PLATELET COUNT, AUTOMATED 203 10^3/uL (150-450); RED BLOOD COUNT 4.31 10^6/uL (4.00-5.40); WHITE BLOOD COUNT 9.1 10^3/uL (4.0-10.0)
[2021-06-07] MEDS ORDERED: ceFAZolin SOD 1 GM in D5W MINI-BAG PLUS 50 ML IV ONE (15:15)
[2021-06-07 15:48] VITALS: BP 120/64
[2021-06-07] MEDS ORDERED: CALCIUM GLUCONATE 1,000 MG in D5W MINI-BAG PLUS 100 ML IV PRN (15:50)
[2021-06-07 15:59] VITALS: BP 114/66
== END 2021-06-07 16:15 | disposition other institution (70) ==
LOC: M LDO 12:47
PROVIDERS: ATTEND Specialist
DX: O26.893 Other specified pregnancy related conditions, third trimester (principal); R25.2 Cramp and spasm; N89.8 Other specified noninflammatory disorders of vagina; O30.041 Twin pregnancy, dichorionic/diamniotic, first trimester; Z87.51 Personal history of pre-term labor; Z3A.29 29 weeks gestation of pregnancy
CPT/HCPCS: 59025; 76815; 76820; 85027; 87426; 96372; J0690; J0702; J3475

== ENCOUNTER → 2021-08-30 | Outpatient (REF) | payer OTHER ==
[~2021-08-30] MED LIST changes: +ALLE60TA69 PO
== END ==
LOC: M SFHCWAGY 13:18
PROVIDERS: ATTEND Advanced Practice Midwife
DX: R30.0 Dysuria (principal)

== ENCOUNTER → 2021-08-30 | Outpatient (REF) | payer OTHER | LOC: M PLALAB 12:11 | PROVIDERS: ATTEND Advanced Practice Midwife | DX: N89.8 Other specified noninflammatory disorders of vagina (principal); R10.2 Pelvic and perineal pain ==

== ENCOUNTER → 2021-11-05 | Outpatient (REF) | payer OTHER | LOC: M PLALAB 19:17 | PROVIDERS: ATTEND Advanced Practice Midwife | DX: Z34.91 Encounter for supervision of normal pregnancy, unspecified, first trimester (principal) ==

== ENCOUNTER → 2021-11-23 | Outpatient (CLI) | payer OTHER ==
[2021-11-23 17:21] LABS: BASO % 0.4 % (0.0-1.0); EOS # 0.1 10^3/uL (0.0-0.5); EOS % 1.8 % (0.0-3.0); HEMATOCRIT 36.4 % (36.0-47.0); HEMOGLOBIN 12.2 g/dl (12.0-15.5); LYMPH # 1.5 10^3/uL (1.5-5.0); LYMPH % 26.9 % (24.0-44.0); MEAN CORPUSCULAR HEMOGLOBIN 28.8 pg (27.0-33.0); MEAN CORPUSCULAR HGB CONC 33.5 g/dl (32.0-36.5); MEAN CORPUSCULAR VOLUME 85.8 fl (80.0-96.0); MONO # 0.5 10^3/uL (0.0-0.8); MONO % 9.2 % (2.0-8.0); NEUTROPHILS # 3.5 10^3/uL (1.5-8.5); NEUTROPHILS % 61.3 % (36.0-66.0); PLATELET COUNT, AUTOMATED 248 10^3/uL (150-450); RED BLOOD COUNT 4.24 10^6/uL (4.00-5.40); WHITE BLOOD COUNT 5.7 10^3/uL (4.0-10.0)
[2021-11-23 18:24] LABS: HEPATITIS C VIRUS ABY INDEX < 0.0 INDEX (<0.8); HIV 1&2 SCREEN CENTAUR NEGATIVE (NEGATIVE)
[2021-11-23 19:51] LABS: GC DNA AMPLIFICATION NEGATIVE (NEGATIVE)
== END ==
LOC: M PLALAB 14:52
PROVIDERS: ATTEND Advanced Practice Midwife
DX: Z34.91 Encounter for supervision of normal pregnancy, unspecified, first trimester (principal); Z86.79 Personal history of other diseases of the circulatory system

== ENCOUNTER → 2022-01-09 | Outpatient (CLI) | payer OTHER | LOC: M WHC 14:01 | PROVIDERS: ATTEND Obstetrics & Gynecology | DX: Z34.90 Encounter for supervision of normal pregnancy, unspecified, unspecified trimester (principal) ==

== ENCOUNTER → 2022-02-26 | Outpatient (CLI) | payer OTHER ==
[2022-02-26 14:35] LABS: HEMATOCRIT 30.3 % (36.0-47.0); MEAN CORPUSCULAR HEMOGLOBIN 30.9 pg (27.0-33.0); MEAN CORPUSCULAR VOLUME 93.5 fl (80.0-96.0); PLATELET COUNT, AUTOMATED 191 10^3/uL (150-450); RED BLOOD COUNT 3.24 10^6/uL (4.00-5.40); WHITE BLOOD COUNT 9.3 10^3/uL (4.0-10.0)
== END ==
LOC: M PLALAB 10:36
PROVIDERS: ATTEND Advanced Practice Midwife
DX: Z34.92 Encounter for supervision of normal pregnancy, unspecified, second trimester (principal)

== ENCOUNTER → 2022-03-01 | Outpatient (CLI) | payer OTHER | LOC: M LAB 07:14 | PROVIDERS: ATTEND Advanced Practice Midwife | DX: O99.810 Abnormal glucose complicating pregnancy (principal); Z3A.00 Weeks of gestation of pregnancy not specified ==

== ENCOUNTER 2022-03-20 12:56 | Emergency (ER) | payer OTHER ==
[2022-03-20] MEDS ORDERED: FERR325T3 PO (14:08)
[2022-03-20] MEDS ORDERED: CEPHALEXIN 500 MG CAP PO ONE (16:35)
[2022-03-20] MEDS ORDERED: CEPH500C PO (16:37)
[2022-03-20 17:18] VITALS: BP 115/58
== END 2022-03-20 17:47 | disposition home or self-care (01) ==
LOC: M ED 12:56
DX: O99.711 Diseases of the skin and subcutaneous tissue complicating pregnancy, first trimester (principal); L03.116 Cellulitis of left lower limb; G43.909 Migraine, unspecified, not intractable, without status migrainosus; M54.9 Dorsalgia, unspecified; F32.A Depression, unspecified; F41.9 Anxiety disorder, unspecified; Z79.899 Other long term (current) drug therapy; Z3A.00 Weeks of gestation of pregnancy not specified

== ENCOUNTER 2022-03-20 13:47 | Outpatient (CLI) | payer OTHER ==
[~2022-03-20] VITALS: Ht 154.9 cm; Wt 71.2 kg
[2022-03-20 14:04] VITALS: BP 117/57
[2022-03-20] MEDS ORDERED: FERR325T3 PO (14:08)
[2022-03-20] MEDS ORDERED: HOME MED LIST COMPLETE! XX SCH (14:10)
[2022-03-20] MEDS ORDERED: CEPH500C PO (16:37)
== END 2022-03-20 14:50 | disposition home or self-care (01) ==
LOC: M LDO 13:47
PROVIDERS: ATTEND Advanced Practice Midwife
DX: O26.893 Other specified pregnancy related conditions, third trimester (principal); R25.2 Cramp and spasm; M79.605 Pain in left leg; Z3A.28 28 weeks gestation of pregnancy

== ENCOUNTER → 2022-04-11 | Outpatient (CLI) | payer OTHER ==
[~2022-04-11] MED LIST changes: +CEPH500C PO; +FERR325T3 PO
== END ==
LOC: M WHC 15:39
PROVIDERS: ATTEND Obstetrics & Gynecology
DX: O26.849 Uterine size-date discrepancy, unspecified trimester (principal)

== ENCOUNTER → 2022-05-15 | Outpatient (REF) | payer OTHER | LOC: M PLALAB 13:29 | PROVIDERS: ATTEND Obstetrics & Gynecology | DX: Z34.80 Encounter for supervision of other normal pregnancy, unspecified trimester (principal) ==

== ENCOUNTER 2022-05-22 19:17 | Inpatient (IN) | payer OTHER ==
[~2022-05-22] VITALS: Ht 154.9 cm; Wt 75.7 kg
[~2022-05-22 19:17] MED LIST changes: +ALLE180T33 PO
[2022-05-22] MEDS ORDERED: LACTATED RINGER'S 1000 ML IV STA (19:33)
[2022-05-22] MEDS ORDERED: TRANEXAMIC ACID INJection 1,000 MG in NS 100 ML IV PRN (19:35)
[2022-05-22] MEDS ORDERED: CARBOPROST TROMETHAMINE 250 MCG/ML AMP IM PRN (19:35)
[2022-05-22] MEDS ORDERED: METHYLERGONOVINE MALEATE 0.2 MG/ML VIAL (J2210) IM PRN (19:35)
[2022-05-22] MEDS ORDERED: ceFAZolin SOD 2 GM in IV 1 EA IV ONE (19:35)
[2022-05-22] MEDS ORDERED: AZITHROMYCIN INJ 500 MG, VIAL MATE ADAPTER 1 EACH in NS 250 ML IV ONE (19:35)
[2022-05-22] MEDS ORDERED: OXYTOCIN INJ 10UNITS/ML 1ML VIAL IM PRN (19:35)
[2022-05-22] MEDS ORDERED: LR 1,000 ML IV SCH (19:35)
[2022-05-22] MEDS ORDERED: BICITRA 30ML SOLN UDC PO ONE (19:35)
[2022-05-22] MEDS ORDERED: OXYTOCIN DRIP 30 UNITS in IV 1 EA IV PRN ×4 (19:35)
[2022-05-22] MEDS ORDERED: TUMS500C PO (19:39)
[2022-05-22] MEDS ORDERED: KETOROLAC 60MG 2ML VIAL As Ordered ONE (20:02)
[2022-05-22] MEDS ORDERED: OXYTOCIN INJ 10UNITS/ML 1ML VIAL As Ordered ONE ×2 (20:02→22:02)
[2022-05-22] MEDS ORDERED: MORPHINE PRES-FREE INJ 10 MG/10 ML VIAL As Ordered ONE (20:03)
[2022-05-22 20:11] VITALS: BP 96/53
[2022-05-22 20:27] LABS: HEMATOCRIT 32.7 % (36.0-47.0); HEMOGLOBIN 10.5 g/dl (12.0-15.5); MEAN CORPUSCULAR HEMOGLOBIN 27.2 pg (27.0-33.0); MEAN CORPUSCULAR HGB CONC 32.1 g/dl (32.0-36.5); MEAN CORPUSCULAR VOLUME 84.7 fl (80.0-96.0); PLATELET COUNT, AUTOMATED 159 10^3/uL (150-450); RED BLOOD COUNT 3.86 10^6/uL (4.00-5.40)
[2022-05-22] MEDS: ceFAZolin SOD 1 GM in D5W MINI-BAG PLUS 50 ML IV SCH ×2 (20:30→21:00)
[2022-05-22 20:44] VITALS: BP 91/53
[2022-05-22] MEDS ORDERED: METOCLOPRAMIDE INJ 10MG/2ML VIAL IV PRN (20:50)
[2022-05-22] MEDS ORDERED: **NOTE PATIENT COMMENT** MISC XX SCH (20:50)
[2022-05-22] MEDS ORDERED: oxyCODONE 5MG TAB PO PRN (20:50)
[2022-05-22] MEDS: SLF 3 ML SYR IV SCH (20:50)
[2022-05-22] MEDS ORDERED: diphenhydrAMINE 50MG/ML VIAL IV PRN ×2 (20:50)
[2022-05-22] MEDS ORDERED: NALBUPHINE HCL 10 MG/ML 1ML AMP IV PRN (20:50)
[2022-05-22] MEDS ORDERED: ONDANSETRON 4MG 2ML VIAL IV PRN (20:50)
[2022-05-22] MEDS ORDERED: MORPHINE 2 MG/ML 1ML VIAL IV PRN (20:50)
[2022-05-22] MEDS ORDERED: NALOXONE INJ 0.4MG/1ML VIAL IV PRN ×4 (20:50→23:00)
[2022-05-22] MEDS ORDERED: MEPERIDINE INJ 25 MG/ML VIAL IV PRN (20:50)
[2022-05-22] MEDS ORDERED: ONDANSETRON 4MG 2ML VIAL As Ordered ONE (21:35)
[2022-05-22] MEDS ORDERED: METOCLOPRAMIDE INJ 10MG/2ML VIAL As Ordered ONE (21:35)
[2022-05-22] MEDS ORDERED: OXYTOCIN DRIP 30 UNITS in IV 1 EA IV SCH ×4 (22:30)
[2022-05-22] MEDS ORDERED: PERCOCET 5MG/325MG TAB PO PRN ×2 (22:30)
[2022-05-22] MEDS ORDERED: SIMETHICONE 80MG CHEW TAB PO PRN (22:30)
[2022-05-22] MEDS ORDERED: RHOGAM 300MCG (1500IU) INJ IM SCH (22:30)
[2022-05-22] MEDS ORDERED: IBUP80TA PO (22:52)
[2022-05-22] MEDS ORDERED: PERCOCET PO (22:52)
[2022-05-22] MEDS ORDERED: COLA100C5 PO (22:52)
[2022-05-22] MEDS ORDERED: OXYTOCIN 30UNITS IN 0.9% NaCl 500ML IV BAG As Ordered ONE (22:55)
[2022-05-23] VITALS (9 sets, daily range): BP systolic 93–124; BP diastolic 53–74
[2022-05-23] MEDS ORDERED: diphenhydrAMINE 50MG/ML VIAL As Ordered ONE (00:04)
[2022-05-23] MEDS: SLF 3 ML SYR IV SCH ×3 (03:55→17:31)
[2022-05-23] MEDS: KETOROLAC 30 MG/ML 1ML VIAL IV SCH ×3 (03:55→17:31)
[2022-05-23 06:48] LABS: HEMATOCRIT 24.8 % (36.0-47.0); MEAN CORPUSCULAR HEMOGLOBIN 27.1 pg (27.0-33.0); MEAN CORPUSCULAR HGB CONC 31.9 g/dl (32.0-36.5); MEAN CORPUSCULAR VOLUME 85.2 fl (80.0-96.0); PLATELET COUNT, AUTOMATED 124 10^3/uL (150-450); RED BLOOD COUNT 2.91 10^6/uL (4.00-5.40); WHITE BLOOD COUNT 7.8 10^3/uL (4.0-10.0)
[2022-05-23 06:52] LABS: HEMOGLOBIN 7.9 g/dl (12.0-15.5)
[2022-05-23] MEDS: FERROUS SULFATE 325MG TAB PO SCH ×2 (10:24→20:24)
[2022-05-23] MEDS: DOCUSATE SODIUM 100MG CAPSULE PO SCH ×2 (10:24→20:23)
[2022-05-23] MEDS: PRENATAL VITAMINS CHEWABLE TABLET PO SCH (10:25)
[2022-05-23] MEDS ORDERED: IBUPROFEN 800 MG TAB PO SCH (22:00)
[2022-05-24 06:00] VITALS: BP 102/61
[2022-05-24] MEDS ORDERED: IBUPROFEN 800 MG TAB PO SCH (08:00)
[2022-05-24] MEDS: DOCUSATE SODIUM 100MG CAPSULE PO SCH (08:08)
[2022-05-24] MEDS: PRENATAL VITAMINS CHEWABLE TABLET PO SCH (08:08)
[2022-05-24] MEDS: FERROUS SULFATE 325MG TAB PO SCH (08:08)
[2022-05-24] MEDS ORDERED: MEASLES,MUMPS,RUBELLA VACCINE INJ (MMR-II) SC.IMMUN ONE (09:00)
[2022-05-24 10:00] VITALS: BP 104/58
== END 2022-05-24 12:30 | disposition home or self-care (01) | DRG 540 ==
LOC: M LDI 19:17 → M OBS 05-23 01:57
PROVIDERS: ADMIT Advanced Practice Midwife; ATTEND Advanced Practice Midwife
PROC: 0UB60ZZ Excision of Left Fallopian Tube, Open Approach (ICD-10-PCS; 2022-05-22)
PROC: 10D00Z1 Extraction of Products of Conception, Low, Open Approach (ICD-10-PCS; principal; 2022-05-22 20:30)
DX: O42.12 Full-term premature rupture of membranes, onset of labor more than 24 hours following rupture (principal); N83.8 Other noninflammatory disorders of ovary, fallopian tube and broad ligament; O34.211 Maternal care for low transverse scar from previous cesarean delivery; Z3A.37 37 weeks gestation of pregnancy; O99.824 Streptococcus B carrier state complicating childbirth; O99.844 Bariatric surgery status complicating childbirth; Z88.0 Allergy status to penicillin; O75.82 Onset (spontaneous) of labor after 37 completed weeks of gestation but before 39 completed weeks gestation, with delivery by (planned) cesarean section; O26.893 Other specified pregnancy related conditions, third trimester; Z37.0 Single live birth

== ENCOUNTER → 2022-09-26 | Outpatient (REF) | payer OTHER ==
[~2022-09-26] MED LIST changes: +COLA100C5 PO; +IBUP80TA PO; +PERCOCET PO; +TUMS500C PO
== END ==
LOC: M SFHCWAGY 09:56
PROVIDERS: ATTEND Nurse Practitioner Family
DX: Z12.4 Encounter for screening for malignant neoplasm of cervix (principal); B37.31 Acute candidiasis of vulva and vagina

== ENCOUNTER → 2023-09-17 | Outpatient (REF) | payer OTHER ==
[~2023-09-17] MED LIST changes: +DOXY-323 PO; -DOXY-443 PO; +ETON1VAG7; +VITMTA PO
[2023-09-17 18:05] LABS: BASO % 0.6 % (0.0-1.0); EOS # 0.1 10^3/uL (0.0-0.5); EOS % 2.6 % (0.0-3.0); HEMATOCRIT 33.5 % (36.0-47.0); HEMOGLOBIN 10.2 g/dl (12.0-15.5); LYMPH # 1.6 10^3/uL (1.5-5.0); MEAN CORPUSCULAR HGB CONC 30.4 g/dl (32.0-36.5); MEAN CORPUSCULAR VOLUME 75.6 fl (80.0-96.0); MONO # 0.5 10^3/uL (0.0-0.8); MONO % 10.3 % (2.0-8.0); NEUTROPHILS # 2.7 10^3/uL (1.5-8.5); NEUTROPHILS % 54.3 % (36.0-66.0); PLATELET COUNT, AUTOMATED 285 10^3/uL (150-450); RED BLOOD COUNT 4.43 10^6/uL (4.00-5.40)
[2023-09-17 18:10] LABS: ALBUMIN 3.1 G/DL (3.2-5.2); ALKALINE PHOSPHATASE 47 U/L (46-116); ALT/SGPT 14 U/L (7.0-40); AST/SGOT 9 U/L (<34); BILIRUBIN,TOTAL 0.4 MG/DL (0.3-1.2); BLOOD UREA NITROGEN 15 MG/DL (9-23); CALCIUM LEVEL 8.5 MG/DL (8.5-10.1); CARBON DIOXIDE LEVEL 26 MMOL/L (20-31); CHLORIDE LEVEL 107 MMOL/L (98-107); CREATININE FOR GFR 0.84 MG/DL (0.55-1.30); FERRITIN 2.5 NG/ML (7.3-270.7); GLOMERULAR FILTRATION RATE > 60.0 (>60); GLUCOSE, FASTING 86 MG/DL (60-100); IRON (FE) 28 UG/DL (50-170); PERCENT SATURATION 6.6 % (13.2-45.0); POTASSIUM SERUM 4.1 MMOL/L (3.5-5.1); SODIUM LEVEL 139 MMOL/L (136-145); THYROID STIMULATING HORMONE 0.755 uIU/ML (0.55-4.78); TOTAL IRON BINDING CAPACITY 423 UG/DL (250-425); TOTAL PROTEIN 6.2 G/DL (5.7-8.2)
[2023-09-17 18:12] LABS: FOLATE 14.31 NG/ML (>5.4); FREE T4 1.16 NG/DL (0.89-1.76); VITAMIN B12 LEVEL 277 PG/ML (211-911)
== END ==
LOC: M SFHCCLAY 09:32
PROVIDERS: ATTEND Nurse Practitioner Family
DX: Z90.3 Acquired absence of stomach [part of] (principal)

== ENCOUNTER → 2023-09-17 | Outpatient (CLI) | payer OTHER | LOC: M LABSMTC 16:10 | PROVIDERS: ATTEND Anesthesiology | DX: Z53.9 Procedure and treatment not carried out, unspecified reason (principal) ==

== ENCOUNTER 2023-10-21 08:37 | Outpatient (CLI) | payer OTHER ==
[~2023-10-21] VITALS: Ht 154.9 cm; Wt 68.1 kg
[2023-10-21 09:02] VITALS: BP 117/70; O2SAT 99
[2023-10-21] MEDS: IRON SUCROSE 25 MG in NS 23.75 ML IV ONE (09:46)
[2023-10-21 10:30] VITALS: BP 99/55; O2SAT 99
[2023-10-21] MEDS: IRON SUCROSE 475 MG in NS 250 ML IV ONE (10:30)
[2023-10-21 14:44] VITALS: BP 110/66; O2SAT 97
== END 2023-10-21 14:45 ==
LOC: M INFU 08:37
PROVIDERS: ATTEND Nurse Practitioner Family
DX: D50.9 Iron deficiency anemia, unspecified (principal); Z88.1 Allergy status to other antibiotic agents
CPT/HCPCS: 96365; 96366; J1756

== ENCOUNTER 2023-11-04 07:59 | Outpatient (CLI) | payer OTHER ==
[~2023-11-04 07:59] MED LIST changes: +IRON SUCROSE 25 MG in NS 23.75 ML IV ONE; +IRON SUCROSE 475 MG in NS 250 ML IV ONE
[2023-11-04 08:00] VITALS: BP 103/63; O2SAT 98
[2023-11-04] MEDS: IRON SUCROSE 500 MG in NS 250 ML OVER 4 HRS IV ONE (08:29)
[2023-11-04 10:00] VITALS: BP 106/57; O2SAT 98
[2023-11-04 11:00] VITALS: BP 97/54; O2SAT 98
[2023-11-04 12:00] VITALS: BP 104/64; O2SAT 98
[2023-11-04 12:40] VITALS: BP 107/62; O2SAT 98
== END 2023-11-04 12:35 ==
LOC: M INFU 07:59
PROVIDERS: ATTEND Nurse Practitioner Family
DX: D50.9 Iron deficiency anemia, unspecified (principal); Z88.0 Allergy status to penicillin
CPT/HCPCS: 96365; 96366; J1756

== ENCOUNTER → 2024-03-11 | Outpatient (CLI) | payer OTHER ==
[~2024-03-11] MED LIST changes: -DOXY-323 PO; +DOXY-441 PO; -IRON SUCROSE 25 MG in NS 23.75 ML IV ONE; -IRON SUCROSE 475 MG in NS 250 ML IV ONE
[2024-03-11 17:15] LABS: BASO % 0.2 % (0.0-1.0); EOS # 0.1 10^3/uL (0.0-0.5); EOS % 1.3 % (0.0-3.0); HEMATOCRIT 42.2 % (36.0-47.0); HEMOGLOBIN 13.8 g/dl (12.0-15.5); LYMPH # 2.2 10^3/uL (1.5-5.0); LYMPH % 25.7 % (24.0-44.0); MEAN CORPUSCULAR HEMOGLOBIN 29.7 pg (27.0-33.0); MEAN CORPUSCULAR HGB CONC 32.7 g/dl (32.0-36.5); MEAN CORPUSCULAR VOLUME 90.8 fl (80.0-96.0); MONO # 0.6 10^3/uL (0.0-0.8); MONO % 7.1 % (2.0-8.0); NEUTROPHILS # 5.5 10^3/uL (1.5-8.5); NEUTROPHILS % 65.3 % (36.0-66.0); PLATELET COUNT, AUTOMATED 274 10^3/uL (150-450); RED BLOOD COUNT 4.65 10^6/uL (4.00-5.40); WHITE BLOOD COUNT 8.4 10^3/uL (4.0-10.0)
[2024-03-11 17:44] LABS: PERCENT SATURATION 26.5 % (13.2-45.0)
[2024-03-11 17:45] LABS: FERRITIN 36.2 NG/ML (7.3-270.7)
== END ==
LOC: M WUC 13:44
PROVIDERS: ATTEND Nurse Practitioner Family
DX: D50.9 Iron deficiency anemia, unspecified (principal); F41.8 Other specified anxiety disorders; Z90.3 Acquired absence of stomach [part of]

== ENCOUNTER → 2024-06-02 | Outpatient (REF) | payer OTHER ==
[2024-06-02 12:19] LABS: BASO % 0.2 % (0.0-1.0); EOS # 0.1 10^3/uL (0.0-0.5); EOS % 1.4 % (0.0-3.0); HEMATOCRIT 43.4 % (36.0-47.0); HEMOGLOBIN 14.3 g/dl (12.0-15.5); LYMPH # 1.7 10^3/uL (1.5-5.0); LYMPH % 38.9 % (24.0-44.0); MEAN CORPUSCULAR HEMOGLOBIN 29.8 pg (27.0-33.0); MEAN CORPUSCULAR HGB CONC 32.9 g/dl (32.0-36.5); MEAN CORPUSCULAR VOLUME 90.4 fl (80.0-96.0); MONO # 0.5 10^3/uL (0.0-0.8); NEUTROPHILS # 2.1 10^3/uL (1.5-8.5); NEUTROPHILS % 48.3 % (36.0-66.0); PLATELET COUNT, AUTOMATED 338 10^3/uL (150-450); WHITE BLOOD COUNT 4.4 10^3/uL (4.0-10.0)
[2024-06-02 12:49] LABS: PERCENT SATURATION 29.1 % (13.2-45.0)
[2024-06-02 12:51] LABS: FERRITIN 30.5 NG/ML (7.3-270.7)
== END ==
LOC: M SFHCCLAY 08:24
PROVIDERS: ATTEND Nurse Practitioner Family
DX: Z90.3 Acquired absence of stomach [part of] (principal); D50.9 Iron deficiency anemia, unspecified; L40.9 Psoriasis, unspecified; F41.8 Other specified anxiety disorders; J30.9 Allergic rhinitis, unspecified

== ENCOUNTER → 2024-08-27 | Outpatient (REF) | payer OTHER | LOC: M LAB REF 17:14 | PROVIDERS: ATTEND Physician Assistant | DX: H10 Conjunctivitis (principal) ==

== ENCOUNTER → 2024-12-28 | Outpatient (CLI) | payer OTHER | LOC: M CLY 10:37 | PROVIDERS: ATTEND Nurse Practitioner Family | DX: M25.562 Pain in left knee (principal); Z90.3 Acquired absence of stomach [part of]; D50.9 Iron deficiency anemia, unspecified; L40.9 Psoriasis, unspecified; F41.8 Other specified anxiety disorders; J30.9 Allergic rhinitis, unspecified; R68.82 Decreased libido ==

== ENCOUNTER → 2024-12-28 | Outpatient (REF) | payer OTHER ==
[2024-12-28 17:54] LABS: ALT/SGPT 30.0 U/L (7.0-40); AST/SGOT 23.0 U/L (<34); CALCIUM LEVEL 9.3 MG/DL (8.5-10.1); CARBON DIOXIDE LEVEL 29.0 MMOL/L (20-31); CHLORIDE LEVEL 105.0 MMOL/L (98-107); CREATININE FOR GFR 0.9 MG/DL (0.55-1.30); GLOMERULAR FILTRATION RATE 89.3 (>60); IRON (FE) 86.0 UG/DL (50-170); PERCENT SATURATION 24.1 % (13.2-45.0); POTASSIUM SERUM 4.0 MMOL/L (3.5-5.1); SODIUM LEVEL 143.0 MMOL/L (136-145)
[2024-12-28 17:57] LABS: BASO # 0.0 10^3/uL (0.0-0.2); BASO % 0.8 % (0.0-1.0); EOS # 0.3 10^3/uL (0.0-0.5); EOS % 6.4 % (0.0-3.0); LYMPH # 1.2 10^3/uL (1.5-5.0); LYMPH % 22.5 % (24.0-44.0); MONO # 0.6 10^3/uL (0.0-0.8); MONO % 10.3 % (2.0-8.0); NEUTROPHILS # 3.2 10^3/uL (1.5-8.5); NEUTROPHILS % 59.8 % (36.0-66.0); PLATELET COUNT, AUTOMATED 296 10^3/uL (150-450)
[2024-12-28 17:58] LABS: FREE T4 1.19 NG/DL (0.89-1.76); TESTOSTERONE 18.0 NG/DL (14-76)
== END ==
LOC: M SFHCCLAY 10:33
PROVIDERS: ATTEND Nurse Practitioner Family
DX: Z90.3 Acquired absence of stomach [part of] (principal); D50.9 Iron deficiency anemia, unspecified; L40.9 Psoriasis, unspecified; F41.8 Other specified anxiety disorders; J30.9 Allergic rhinitis, unspecified; R68.82 Decreased libido